=== PATIENT | female | born 1955 | race Caucasian/White ===

== ENCOUNTER 2017-12-05 10:06 | Emergency (ER) | payer OTHER ==
[2017-12-05 10:45] LABS: Absolute Lymphocytes (CBC) 1.5 K/uL (0.7-4.9); Absolute Neutrophil 8.6 K/uL (1.8-8.0); Basophils % 0.3 % (0-1.3); Eosinophils % 2.8 % (0-4.4); Hematocrit 41.3 % (36.0-45.0); MCH 31.7 pg (27.0-35.0); MCV 92.6 fL (80-100); MPV 7.6 fL (7.6-11.3); Monocytes % 8.8 % (3.3-12.3); RBC Red Blood Cell Count 4.46 M/uL (3.86-4.86)
[2017-12-05 10:47] LABS: Protime INR 0.97
[2017-12-05 10:57] LABS: ALT/SGPT 13 U/L (12-78); AST/SGOT 9 U/L (15-37); Albumin 3.8 g/dL (3.4-5.0); Alkaline Phosphatase 79 U/L (45-117); BUN Blood Urea Nitrogen 15 mg/dL (7-18); Bicarbonate 26 mmol/L (21-32); Bilirubin Direct 0.2 mg/dL (0-0.2); Bilirubin Total 0.6 mg/dL (0.2-1.0); Glucose Level 104 mg/dL (74-106); Magnesium 2.4 mg/dL (1.8-2.4); NT PRO-BNP 181 pg/mL (<125); Protein, Total 7.5 g/dL (6.4-8.2); Sodium Level 141 mmol/L (136-145); Troponin (Emerg Dept Use Only) < 0.02 ng/mL (0.0-0.045)
--- NOTE | 2017-12-05 10:57 | RAD REPORT ---
EXAM DESCRIPTION: RAD - Chest Single View - 12/05/2017 10:51 am CLINICAL HISTORY: CHEST PAIN Chest pain. COMPARISON: Chest Pa And Lat (2 Views) dated 01/09/2016 FINDINGS: Portable technique limits examination quality. The lungs are emphysematous but grossly clear. The heart is normal in size. No displaced fractures. IMPRESSION: COPD.
[2017-12-05] MEDS ORDERED: IBUPROFEN 200 MG TAB PO ONE (12:58)
--- NOTE | 2017-12-05 13:17 | RAD REPORT ---
EXAM DESCRIPTION: CT - Head Brain Wo Cont - 12/05/2017 1:08 pm CLINICAL HISTORY: Headache COMPARISON: None. TECHNIQUE: Axial 5 mm thick images of the head were obtained without IV contrast. All CT scans are performed using dose optimization technique as appropriate and may include automated exposure control or mA/KV adjustment according to patient size. FINDINGS: No intracranial hemorrhage, mass, edema or shift of mid-line structures. No acute infarcti on changes seen. No cortical edema or sulcal effacement. Mild atrophy and chronic ischemic changes ar e present. Physiologic and arterial calcifications are present. Ventricles are normal. Mastoid air cells and visualized portions of the paranasal sinuses are clear. No acute bony findings. IMPRESSION: Negative non-contrast CT head examination for acute finding Mild atrophy and chronic ischemic change.
--- NOTE | 2017-12-05 13:34 | ER ---
Nurse's Notes [facility] Name: Nikki Lopez Age: 62 yrs Sex: Female : 1955 Arrival Date: 12/05/2017 Time: 10:09 Bed 3 Private MD: Diagnosis: COPD, Bronchitis, Headache, Chest pain Presentation: 12/05 10:21 Presenting complaint: Patient states: chest pain that radiates up neck and into back ss that began yesterday with shortness of breath. Pt reports that pain is continuous, has gotten worse but also has episodic sharp pains. Also c/o cough, has history of COPD and smokes 1-2 ppd. Transition of care: patient was not received from another setting of care. Onset of symptoms was December 04, 2017. Risk Assessment: Do you want to hurt yourself or someone else? Patient reports no desire to harm self or others. Initial Sepsis Screen: Does the patient meet any 2 criteria? No. Patient's initial sepsis screen is negative. Does the patient have a suspected source of infection? Yes: Productive cough/pneumonia. Care prior to arrival: None. 10:21 Method Of Arrival: Ambulatory ss 10:21 Acuity: ANA 3 ss Historical: - Allergies: 10:30 No Known Allergies; ss - Home Meds: 10:30 simvastatin 10 mg Oral tab 1 tab once daily [Active]; aspirin 81 mg Oral TbEC 1 tab ss once daily [Active]; - PMHx: 10:30 High Cholesterol; COPD; ss - PSHx: 10:30 Cholecystectomy; Hysterectomy; foot sx; ss - Immunization history:: Adult Immunizations up to date. - Social history:: Smoking status: Patient uses tobacco products, 1.5 ppd. - Ebola Screening: : Patient denies exposure to infectious person Patient denies travel to an Ebola-affected area in the 21 days before illness onset. Screenin:30 Abuse screen: Denies threats or abuse. Denies injuries from another. Nutritional ss screening: No deficits noted. Tuberculosis screening: Never had TB. Fall Risk None identified. Assessment: 10:23 General: Appears uncomfortable, Behavior is calm, cooperative, Reports feeling ill for ss 1-2 days, Denies fever. Pain: Complains of pain in chest Pain radiates to neck and upper back Pain currently is 7 out of 10 on a pain scale. at worst was 8 out of 10 on a pain scale. Quality of pain is described as aching, with episodic sharp pains Pain began yesterday Is continuous. Neuro: Level of Consciousness is awake, alert, obeys commands, Oriented to person, place, time, situation. Cardiovascular: Heart tones S1 S2 present Capillary refill < 3 seconds is brisk in bilateral fingers Rhythm is regular. Cardiovascular: Pulses are palpable in right radial artery, right posterior tibial artery, left radial artery and left posterior tibial artery Edema is absent. Respiratory: Reports shortness of breath on exertion cough that is since yesterday, is productive/ hacking Breath sounds are diminished in left posterior lower lobe, right posterior middle lobe and right posterior lower lobe. GI: Patient currently denies abdominal pain, diarrhea, nausea, vomiting. : No signs and/or symptoms were reported regarding the genitourinary system. EENT: Nares are clear Oral mucosa is moist. Throat is clear. Derm: Skin is intact, is healthy with good turgor, Skin is dry, Skin is pink, warm \T\ dry. normal. Musculoskeletal: Circulation, motion, and sensation intact. Range of motion: intact in all extremities, Swelling absent. 12:54 Reassessment: Patient appears in no apparent distress at this time. Patient and/or ss family updated on plan of care and expected duration. Pain level reassessed. Pt c/o headache and CP 5/10, is aware that we are awaiting for repeat troponin results and head CT to be obtained. Call light remains within reach. Motrin given. 13:04 Reassessment: Pt to CT VIA wheelchair at this time. ss 13:51 Reassessment: Patient appears in no apparent distress at this time. Patient and/or ss family updated on plan of care and expected duration. Pain level reassessed. Patient is alert, oriented x 3, equal unlabored respirations, skin warm/dry/pink. Patient states feeling better. Patient states symptoms have improved. Vital Signs: 10:21 BP 126 / 77; Pulse 92; Resp 19; Temp 98.6(O); Pulse Ox 97% on R/A; Weight 77.11 kg; ss Height 5 ft. 9 in. (175.26 cm); Pain 7/10; 12:17 BP 145 / 74; Pulse 87; Resp 20; Pulse Ox 96% on R/A; Pain 5/10; ss 10:21 Body Mass Index 25.10 (77.11 kg, 175.26 cm) ss ED Course: 10:09 Patient arrived in ED. mr 10:19 Saqib Mosqueda MD is Attending Physician. kdr 10:21 Kika Oliveira, RN is Primary Nurse. ss 10:21 Arm band placed on right wrist. ss 10:23 Triage completed. ss 10:23 EKG done, by pathology lab technician. reviewed by Saqib Mosqueda MD. at1 10:30 Inserted saline lock: 20 gauge in left antecubital area, using aseptic technique. ss ,using aseptic technique. insertion by Tonio Dalton clinical dietetic technician Blood collected. Patient maintains SpO2 saturation greater than 95% on room air. 10:30 Patient has correct armband on for positive identification. Placed in gown. Bed in low ss position. Call light in reach. Side rails up X 1. satellite project site monitor on. Pulse ox on. NIBP on. Warm blanket given. 10:50 X-ray completed. Portable x-ray completed in exam room. Patient tolerated procedure ml well. 10:51 XRAY Chest (1 view) In Process Unspecified. EDMS 12:43 EKG done, by pathology lab technician. reviewed by Saqib Mosqueda MD. dt2 13:08 CT Head Brain wo Cont In Process Unspecified. EDMS 13:51 No provider procedures requiring assistance completed. IV discontinued, intact, ss bleeding controlled, No redness/swelling at site. Pressure dressing applied. Administered Medications: 12:51 Drug: Motrin 600 mg Route: PO; ss 13:53 Follow up: Response: No adverse reaction; Pain is decreased Outcome: 13:33 Discharge ordered by . kdr 13:51 Discharged to home ambulatory. ss 13:51 Condition: improved 13:51 Discharge instructions given to patient, Instructed on discharge instructions, follow up and referral plans. medication usage, Demonstrated understanding of instructions, follow-up care, medications, Prescriptions given X 3. 13:52 Patient left the ED. Signatures: Dispatcher [employer] EDMS Saqib Mosqueda MD MD kdr RiveraLeatha Mallika Ordoñez, RN RN Danyell Escamilla Kika Oliveira, TUCKER RN ss Seema Valenzuela, brazing machine operator EKG Tat1 Angela Fonseca dt2
--- NOTE | 2017-12-05 13:35 | EDPHYS ---
Physician Documentation [facility] Name: Nikki Lopez Age: 62 yrs Sex: Female : 1955 Arrival Date: 12/05/2017 Time: 10:09 Bed 3 Private MD: ED Physician Saqib Mosqueda HPI: 12/05 23:11 This 62 yrs old Female presents to ER via Ambulatory with complaints of Chest kdr Pain, Shortness Of Breath. 23:11 The patient or guardian reports chest pain that is located primarily in the anterior kdr chest wall, bilaterally. Onset: yesterday. The pain radiates to the left arm, Associated signs and symptoms: The patient has no apparent associated signs or symptoms. The chest pain is described as aching, dull, a heaviness. Duration: The patient or guardian reports a single episode, that is still ongoing, but improving. Modifying factors: The symptoms are alleviated by nothing. the symptoms are aggravated by cough, deep breath, exertion, movement, palpation of area. Severity of pain: At its worst the pain was mild in the emergency department the pain has improved. The patient has not experienced similar symptoms in the past. The patient has not recently seen a physician. Historical: - Allergies: 10:30 No Known Allergies; ss - Home Meds: 10:30 simvastatin 10 mg Oral tab 1 tab once daily [Active]; aspirin 81 mg Oral TbEC 1 tab ss once daily [Active]; - PMHx: 10:30 High Cholesterol; COPD; ss - PSHx: 10:30 Cholecystectomy; Hysterectomy; foot sx; ss - Immunization history:: Adult Immunizations up to date. - Social history:: Smoking status: Patient uses tobacco products, 1.5 ppd. - Ebola Screening: : Patient denies exposure to infectious person Patient denies travel to an Ebola-affected area in the 21 days before illness onset. ROS: 23:11 Constitutional: Negative for fever, chills, and weight loss, Eyes: Negative for injury, kdr pain, redness, and discharge, ENT: Negative for injury, pain, and discharge, Neck: Negative for injury, pain, and swelling, Abdomen/GI: Negative for abdominal pain, nausea, vomiting, diarrhea, and constipation, Back: Negative for injury and pain, : Negative for injury, bleeding, discharge, and swelling, MS/Extremity: Negative for injury and deformity, Skin: Negative for injury, rash, and discoloration, Neuro: Negative for headache, weakness, numbness, tingling, and seizure activity. Psych: Negative for depression, anxiety, suicide ideation, homicidal ideation, and hallucinations, Allergy/Immunology: Negative for hives, rash, and allergies, Endocrine: Negative for neck swelling, polydipsia, polyuria, polyphagia, and marked weight changes, Hematologic/Lymphatic: Negative for swollen nodes, abnormal bleeding, and unusual bruising. 23:11 Cardiovascular: Positive for chest pain, Negative for edema, orthopnea, palpitations, paroxysmal nocturnal dyspnea. 23:11 Respiratory: Positive for cough, dyspnea on exertion, shortness of breath, on exertion. Negative for hemoptysis, orthopnea, pleurisy. Exam: 23:11 Constitutional: This is a well developed, well nourished patient who is awake, alert, kdr and in no acute distress. Head/Face: Normocephalic, atraumatic. Eyes: Pupils equal round and reactive to light, extra-ocular motions intact. Lids and lashes normal. Conjunctiva and sclera are non-icteric and not injected. Cornea within normal limits. Periorbital areas with no swelling, redness, or edema. Neck: Trachea midline, no thyromegaly or masses palpated, and no cervical lymphadenopathy. Supple, full range of motion without nuchal rigidity, or vertebral point tenderness. No Meningismus. Chest/axilla: Normal chest wall appearance and motion. Nontender with no deformity. No lesions are appreciated. Cardiovascular: Regular rate and rhythm with a normal S1 and S2. No gallops, murmurs, or rubs. Normal PMI, no JVD. No pulse deficits. Respiratory: Lungs have equal breath sounds bilaterally, clear to auscultation and percussion. No rales, rhonchi or wheezes noted. No increased work of breathing, no retractions or nasal flaring. Abdomen/GI: Soft, non-tender, with normal bowel sounds. No distension or tympany. No guarding or rebound. No evidence of tenderness throughout. Back: No spinal tenderness. No costovertebral tenderness. Full range of motion. Skin: Warm, dry with normal turgor. Normal color with no rashes, no lesions, and no evidence of cellulitis. MS/ Extremity: Pulses equal, no cyanosis. Neurovascular intact. Full, normal range of motion. Neuro: Awake and alert, GCS 15, oriented to person, place, time, and situation. Cranial nerves II-XII grossly intact. Motor strength 5/5 in all extremities. Sensory grossly intact. Cerebellar exam normal. Normal gait. Psych: Awake, alert, with orientation to person, place and time. Behavior, mood, and affect are within normal limits. Vital Signs: 10:21 BP 126 / 77; Pulse 92; Resp 19; Temp 98.6(O); Pulse Ox 97% on R/A; Weight 77.11 kg; ss Height 5 ft. 9 in. (175.26 cm); Pain 7/10; 12:17 BP 145 / 74; Pulse 87; Resp 20; Pulse Ox 96% on R/A; Pain 5/10; ss 10:21 Body Mass Index 25.10 (77.11 kg, 175.26 cm) ss MDM: 13:33 Patient medically screened. kdr 23:11 Data reviewed: vital signs, nurses notes, lab test result(s), EKG, radiologic studies. kdr Counseling: I had a detailed discussion with the patient and/or guardian regarding: the historical points, exam findings, and any diagnostic results supporting the discharge/admit diagnosis, lab results, radiology results, the need for outpatient follow up. 12/05 10:20 Order name: Basic Metabolic Panel; Complete Time: 11:46 kdr 12/05 10:20 Order name: CBC with Diff; Complete Time: 11:46 kdr 12/05 10:20 Order name: LFT's; Complete Time: 11:46 kdr 12/05 10:20 Order name: Magnesium; Complete Time: 11:46 kdr 12/05 10:20 Order name: NT PRO-BNP; Complete Time: 11:46 kdr 12/05 10:20 Order name: PT-INR; Complete Time: 11:46 kdr 12/05 10:20 Order name: Troponin (emerg Dept Use Only); Complete Time: 11:46 kdr 12/05 10:20 Order name: XRAY Chest (1 view); Complete Time: 11:46 kdr 12/05 10:20 Order name: EKG; Complete Time: 10:21 kdr 12/05 11:49 Order name: Troponin (emerg Dept Use Only): draw 2 hours after initial draw kdr 12/05 11:49 Order name: Troponin (Emerg Dept Use Only); Complete Time: 13:24 EDDE 12/05 12:37 Order name: CT Head Brain wo Cont; Complete Time: 13:24 kdr 12/05 13:22 Order name: EKG Electrocardiogram EDDE 12/05 10:20 Order name: Cardiac monitoring; Complete Time: 10:27 kdr 12/05 10:20 Order name: EKG - Nurse/Tech; Complete Time: 10:27 kdr 12/05 10:20 Order name: IV Saline Lock; Complete Time: 10:27 kdr 12/05 10:20 Order name: Labs collected and sent; Complete Time: 10:28 kdr 12/05 10:20 Order name: O2 Per Protocol; Complete Time: 10:28 kdr 12/05 10:20 Order name: O2 Sat Monitoring; Complete Time: 10: kdr 12/05 11:50 Order name: EKG Strip: 2 hours after initial EKG; Complete Time: 12:48 kdr Administered Medications: 12:51 Drug: Motrin 600 mg Route: PO; 13:53 Follow up: Response: No adverse reaction; Pain is decreased ss Disposition: 12/05/17 13:33 Discharged to Home. Impression: COPD, Bronchitis, Headache, Chest pain. - Condition is Stable. - Discharge Instructions: Shortness of Breath, Tzyy-np-Luyt, Nonspecific Chest Pain, Lezb-pu-Tcbn, General Headache Without Cause, Gmaw-hw-Mesb, Chronic Obstructive Pulmonary Disease Exacerbation, Ktel-wa-Kovb. - Prescriptions for Tessalon Perles 100 mg Oral Capsule - take 1 capsule by ORAL route every 8 hours As needed; 15 capsule. Zithromax Z- Jean 250 mg Oral Tablet - take 1 tablet by ORAL route as directed for 5 days Day 1 - take two (2) tablets one time. Day 2, 3, 4 , 5 take one (1) tablet once daily.; 6 tablet. Medrol (Jean) 4 mg Oral Tablets, Dose Pack - take 1 tablet by ORAL route as directed - follow package instructions; 1 packet. - Medication Reconciliation Form, Thank You Letter, Antibiotic Education form. - Follow up: Private Physician; When: 2 - 3 days; Reason: If symptoms return, Further diagnostic work-up, Recheck today's complaints, Continuance of care, Re-evaluation by your physician. - Problem is an acute exacerbation. - Symptoms have improved. Signatures: Dispatcher [employer] EDMS Saqib Mosqueda MD MD kdr Kika Oliveira, TUCKER RN ss Corrections: (The following items were deleted from the chart) 13:52 13:33 12/05/2017 13:33 Discharged to Home. Impression: COPD, Bronchitis, Headache, ss Chest pain. Condition is Stable. Forms are Medication Reconciliation Form, Thank You Letter, Antibiotic Education, Prescription Opioid Use. Follow up: Private Physician; When: 2 - 3 days; Reason: If symptoms return, Further diagnostic work-up, Recheck today's complaints, Continuance of care, Re-evaluation by your physician. Problem is an acute exacerbation. Symptoms have improved. kdr
--- NOTE | 2017-12-05 14:26 | EKG ---
Test Date: 2017-12-05 Test Time: 12:35:42 Real Estate Development Manager: SHADI MEASUREMENT RESULTS: Intervals: Rate: 82 CA: 140 QRSD: 70 QT: 384 QTc: 448 [place]: P: 70 CA: 140 QRS: 43 T: 71 INTERPRETIVE STATEMENTS: Sinus rhythm with occasional premature ventricular complexes Otherwise normal ECG Compared to ECG 12/05/2017 10:17:36 Ventricular premature complex(es) now present Electronically Signed On 12-05-17 14:25:45 CDT by Jadon Conley
--- NOTE | 2017-12-05 14:27 | EKG ---
Test Date: 2017-12-05 Test Time: 10:17:36 Manager Of Quality: ALVARO MEASUREMENT RESULTS: Intervals: Rate: 97 [place]: 132 QRSD: 72 QT: 358 QTc: 454 [place]: P: 76 [place]: 132 QRS: 40 T: 79 INTERPRETIVE STATEMENTS: Normal sinus rhythm Normal ECG Compared to ECG 05/17/1998 09:44:00 No significant changes Electronically Signed On 12-05-17 14:26:15 CDT by Jadon Conley
== END 2017-12-05 13:52 | disposition home or self-care (01) ==
LOC: ER 10:06
DX: J44.9 Chronic obstructive pulmonary disease, unspecified (principal); R51 Headache; E78.00 Pure hypercholesterolemia, unspecified; Z72.0 Tobacco use; Z79.82 Long term (current) use of aspirin
CPT/HCPCS: 36415; 70450; 71045; 80048; 80076; 83735; 83880; 84484; 85025; 85610; 93005; 99285

== ENCOUNTER 2021-03-23 06:08 | Day surgery (SDC) | payer OTHER ==
[2021-03-22 15:13] LABS: Absolute Lymphocytes (CBC) 1.7 K/uL (0.7-4.9); Hematocrit 47.6 % (36.0-45.0); Lymphocytes % 12.8 % (15.3-44.8); MPV 7.1 fL (7.6-11.3)
--- NOTE | 2021-03-22 16:32 | RAD REPORT ---
EXAM DESCRIPTION: Kush Preston And Manoj (2 Views)03/22/2021 3:10 pm CLINICAL HISTORY: Preop for abscess removal COMPARISON: 2019 FINDINGS: Lungs are moderately hyperaerated. Previously described left upper lobe nodules not clearl y seen on this exam but can be missed with x-ray. The lungs appear clear of acute infiltrate. The heart is normal size
[2021-03-23] MEDS ORDERED: Ringers Lactate 1,000 ML IV ONE (06:22)
[2021-03-23] MEDS ORDERED: CEFAZOLIN/NS 1gm 1 GM/50 ML BAG ONE (06:22)
[2021-03-23] MEDS ORDERED: FENTANYL CITR 100 MCG/2 ML ONE (06:58)
[2021-03-23] MEDS ORDERED: propofoL 200 MG/20 ML VIAL IV ONE (06:58)
[2021-03-23] MEDS ORDERED: LIDOCAINE 2% MPF 5 ML VIAL ONE (06:58)
[2021-03-23] MEDS ORDERED: MIDAZOLAM HCL 2 MG/2 ML INJ ONE (06:58)
[2021-03-23] MEDS ORDERED: CEFAZOLIN SODIUM 1 GM/VIAL ONE (07:42)
[2021-03-23] MEDS ORDERED: ONDANSETRON 4 MG/2 ML VIAL ONE (07:48)
[2021-03-23] MEDS ORDERED: KETOROLAC 30 MG/ML INJ ONE (07:50)
--- NOTE | 2021-03-23 08:35 | OP ---
Date of Procedure: 03/23/2021 Surgeon: Kwame Connors MD Egg Caser: None. Preoperative Diagnosis: Abscess/cellulitis, left axilla. Postoperative Diagnosis: Abscess/cellulitis, left axilla, with an infected sebaceous cyst. Procedure Performed: Wide excision of left axilla infected sebaceous cyst, 8 x 4 cm, with layered cl osure. Estimated Blood Loss: Minimal. Specimen: Pus and cyst. Findings: As above. Anesthesia: General. Drains: A quarter-inch [place] drain. Disposition: The patient tolerated the procedure in stable condition and taken to Recovery in good g eneral condition. Procedure In Detail: The patient was brought to the OR and placed in supine position. General anest hesia begun. The patient was prepped and draped in the usual sterile fashion in the right lateral po sition. Then, Marcaine 0.5% was infiltrated locally. A #15 blade was used to make an 8 x 4 cm incis ion to excise what appeared to be an abscess at first, but once we made the incision, I could see the re was an infected sebaceous cyst with an abscess inside of the cyst. So the pus was evacuated, cult ures were done, and then the entire cyst was excised, the wall and everything down through the deep s ubcutaneous tissue and sent to Pathology. Wound was irrigated, bleeding controlled with cautery, fla ps created, and then the wound was loosely approximated. First, there was a quarter-inch [place] aubree in placed in the wound and secured with 3-0 nylon, and then 2-0 chromic was used to reapproximate the subcutaneous tissue, and then 3-0 nylon was used to loosely reapproximate the skin in interrupted piedra tures. Then, sterile dressing was applied. The patient was awakened and taken to Recovery in good g eneral condition. Discharge Note: The patient will go to Day Surgery and home when stable. Disposition: Home. Condition: Stable. Discharge Instructions: Resume home medications and diet. Activity as tolerated. No heavy lifting. Remove outer dressing in 2 days. Shower. Keep wound clean and dry, dry gauze to wound daily. Fol low up in my office in a week. Call for appointment. The patient has clindamycin at home, Tylenol N o.3 one tablet p.o. q.4 p.r.n. pain. /MODL Voice ID: [id number] Report ID: [id number]
[2021-03-23 08:42] VITALS: BP 146/70; TEMP 97.3; O2SAT 90
[2021-03-23] MEDS ORDERED: CODEINE 30MG/APAP 300MG TAB PO ONE (08:45)
[2021-03-23] MEDS ORDERED: CODEINE 30MG/APAP 300MG TAB ONE (08:53)
== END 2021-03-23 09:20 | disposition home or self-care (01) ==
LOC: OR 06:08
PROVIDERS: ATTEND Surgery
PROC: 0HBCXZZ Excision of Left Upper Arm Skin, External Approach (ICD-10-PCS; principal; 2021-03-23 07:00)
DX: L72.0 Epidermal cyst (principal); Z20.822 Contact with and (suspected) exposure to COVID-19
CPT/HCPCS: 93005; 87070; 85025; 80048; 36415; 87205; 88304; 87075; 87077; 87186; 71046; 11406; U0003; J2704; J2250; J3010; J0690 ×2; J7120; J2405

== ENCOUNTER 2023-12-10 06:30 | Day surgery (SDC) | payer OTHER ==
[2023-12-05 10:58] LABS: Absolute Eosinophils 0.3 K/uL (0-0.5); Absolute Lymphocytes (CBC) 1.4 K/uL (0.7-4.9); Absolute Monocytes 0.6 K/uL (0.1-1.3); Absolute Neutrophil 5.1 K/uL (1.8-8.0); Basophils % 0.4 % (0-1.3); Eosinophils % 3.9 % (0-4.4); Hematocrit 46.9 % (36.0-45.0); Hemoglobin 15.5 g/dL (12.0-15.0); Lymphocytes % 18.4 % (15.3-44.8); MCH 31.8 pg (27.0-35.0); MCV 96.2 fL (80-100); MPV 6.9 fL (7.6-11.3); Monocytes % 7.9 % (3.3-12.3); Neutrophils % 69.4 % (41.7-73.7); Platelets 308 thou/uL (152-406); RBC Red Blood Cell Count 4.87 M/uL (3.86-4.86); Red Cell Distribution Width 13.5 % (12.1-15.2)
[2023-12-05 11:01] LABS: PT Prothrombin Time 10.2 SECONDS (9.4-12.5); PTT, Activated Partial Thromb 30.3 SECONDS (24.3-36.9); Protime INR 0.91
[2023-12-05 11:07] LABS: Anion Gap 6.3 mEq/L (5.0-15.0); Potassium 4.3 mEq/L (3.5-5.1)
--- NOTE | 2023-12-05 11:32 | RAD REPORT ---
EXAMINATION: TWO VIEW CHEST XR CLINICAL INDICATION: pre op for labor relations specialist TECHNIQUE: 2 views of the chest was performed. COMPARISON: 03/22/2021 FINDINGS: The lungs are hyperexpanded suggesting COPD. The heart is upper limit of normal in size. No displaced fractures evident. IMPRESSION: COPD is suspected without acute finding identified. The USPSTF recommends annual screening for lung cancer with low-dose computed tomography (LDCT) in ad ults aged 50 to 80 years who have a 20 pack-year smoking history and currently smoke or have quit within the past 15 years. Screening should be discontinued once a person has not smoked for 15 years or develops a health problem that substantially limits life expectancy or the ability or willingness to have curative lung surgery.
--- NOTE | 2023-12-05 14:05 | EKG ---
Test Date: 2023-12-05 Test Time: 10:40:48 Cryptographic Center Specialist: JENNIFFER MEASUREMENT RESULTS: Intervals: Rate: 67 CA: 158 QRSD: 68 QT: 420 QTc: 443 [place]: P: 76 CA: 158 QRS: 46 T: 80 INTERPRETIVE STATEMENTS: Normal sinus rhythm Normal ECG Compared to ECG 03/22/2021 15:14:12 No significant changes Electronically Signed On 12-05-23 14:05:21 CDT by Jefferson Hollingsworth
[2023-12-10] MEDS ORDERED: FENTANYL CITR 100 MCG/2 ML ONE (07:14)
[2023-12-10] MEDS ORDERED: MIDAZOLAM HCL 2 MG/2 ML INJ ONE (07:14)
[2023-12-10] MEDS ORDERED: HEPA 1000U/500MLS 1,000 UNIT/500 ML BAG IV ONE (07:23)
[2023-12-10] MEDS ORDERED: NITROGLYCERIN/D5W 50 MG/250 ML BTL IV ONE (07:23)
[2023-12-10] MEDS ORDERED: CLOPIDOGREL 75 MG TABLET ONE (07:24)
[2023-12-10] MEDS ORDERED: HEPARIN 5000 UNIT/ML 1 ML VIAL ONE (07:24)
[2023-12-10] MEDS ORDERED: ATROPINE SULF 1 MG/10 ML SYR IV ONE (07:24)
[2023-12-10] MEDS ORDERED: HEPARIN 10,000 UNIT/10 ML VIAL IV ONE (07:24)
[2023-12-10] MEDS ORDERED: VERAPAMIL HCL 10 MG/4 ML VIAL IV ONE (07:24)
[2023-12-10] MEDS ORDERED: LIDOCAINE 1% 20 ML MDV ONE (07:24)
[2023-12-10] MEDS ORDERED: ASPIRIN 325 MG TAB ONE (07:25)
[2023-12-10] MEDS ORDERED: TICAGRELOR 90 MG TABLET PO ONE (07:25)
[2023-12-10] MEDS: NA CHLORIDE 0.9% 500 ML ONE (09:40)
[2023-12-10 12:41] VITALS: O2SAT 95
[2023-12-10 12:43] VITALS: TEMP 98.7
[2023-12-10 13:22] VITALS: BP 111/45
--- NOTE | 2023-12-11 13:20 | OP ---
Date of Procedure: 12/10/2023 Surgeon: Jefferson Hollingsworth Procedures Performed: 1.Left heart catheterization. 2.Selective coronary angiogram. 3.PCI of the LAD with Synergy 3.5 x 24 mm drug-eluting stent, overlapped with another Synergy 2.5 x 20 mm drug-eluting stent. 4.PCI of the diagonal with Synergy 3.0 x 16 mm drug-eluting stent. Complications: None. Estimated Blood Loss: Less than 50 cc. Access: Right radial, closed by TR band. Indications For Procedure: Unstable angina. Abnormal monitor showing nonsustained VT. Sedation Time: 40 minutes with 1 of Versed and 25 of fentanyl. Description Of Procedure: After risks, and benefits, and alternatives were explained to patient, pat ient agreed to proceed with the procedure and signed informed consent. The patient was brought back to the kiln labourer, prepped and draped in a sterile fashion. Time-out was performed. Sedation was admi nistered. Right radial access was obtained. Next, [place] 4.0 catheter was advanced over a J-wire to the LV cavity. LVEDP was obtained and pullback did not show any gradient. Same catheter was used fo r selective angiogram. That catheter was later exchanged for an EBU 3.0 mm guide to the left main. Heparin was administered. ACT was therapeutic. Runthrough wire was passed across the lesion and a s econd Runthrough wire was passed across the lesion into the diagonal, pre-dilated the mid LAD lesions with NC 2.5 mm balloon. Next, Synergy 2.5 x 20 mm drug-eluting stent was passed across the lesion. Repeat angiogram shows pinching of the ostial diagonal. So, another wire was passed across the diag onal and pre-dilated the lesions with 2.0, 2.5 mm NC balloons. Next, Synergy 3.0 x 16 mm drug-elutin g stent was placed across the lesion that was overlapped with the LAD Synergy stent and then recross done and kissing balloon inflation was done. After that, the proximal LAD was pre-dilated with an NC 3.0 mm balloon. Synergy 3.5 x 24 mm drug-eluting stent was placed across the proximal LAD, that was overlapped with the mid LAD stent. This postdilated with an NC 4.0 mm balloon. Final angiogram yaneth ws NARA-3 flow. Catheter was removed over a J-wire. Sheath was removed. TR band was applied. Hemo stasis was achieved and patient was moved back to recovery room in stable condition. Findings: 1.Significant proximal LAD disease, status post PCI with Synergy 4.0 x 24 mm drug-eluting stent. 2.Significant mid LAD/diagonal disease. PCI of the mid LAD was done with Synergy 2.5 x 24 mm drug-e luting stent and that overlapped in a culotte technique with a 3.0 x 20 mm drug-eluting stent into th e diagonal branch. Plan: 1.Aspirin 81 mg daily for life. Brilinta 90 mg p.o. b.i.d. for 12 months. 2.Continue aggressive medical treatment for CAD. CLARI/BAYRON Voice ID: [id number] Report ID: [id number]
== END 2023-12-10 13:40 | disposition home or self-care (01) ==
LOC: CCL 06:30
PROVIDERS: ADMIT Internal Medicine; ATTEND Internal Medicine Interventional Cardiology
DX: I25.110 Atherosclerotic heart disease of native coronary artery with unstable angina pectoris (principal); I70.213 Atherosclerosis of native arteries of extremities with intermittent claudication, bilateral legs; I44.1 Atrioventricular block, second degree; E78.2 Mixed hyperlipidemia; J44.9 Chronic obstructive pulmonary disease, unspecified; F17.210 Nicotine dependence, cigarettes, uncomplicated; Z79.899 Other long term (current) drug therapy; Z82.49 Family history of ischemic heart disease and other diseases of the circulatory system
CPT/HCPCS: 36415; 71046; 76937; 80048; 85025; 85347; 85610; 85730; 93005; 93458; 99152; 99153; C1725; C1877; C1893; C9600; C9601; J0461; J1644; J2003; J2250; J3010; J7040; Q9967

== ENCOUNTER 2024-09-24 12:29 | Inpatient (IN) | payer OTHER ==
--- OUTSIDE RECORDS SUMMARY | 2024-09-24 12:32 | XMS REPORT | Continuity of Care Document ---
Author Name Unknown Address [address] [place] [address] [address] [place] [address] [facility] Address [address] [place] [address] 1 [address] [place] [address] Care Team Providers Care Record Label Intern Name Role Phone Sunita LOUIS, Connor Howard Primary Care Physician JC Attending Clinician Unavailable JC Admitting Clinician Unavailable Payers Payer Name Policy Type Policy Number Effective Date Expirati on Date Source AETNA [id number] 2019 00:00:00 [place]IC[place]: [facility] [id number] 2018 00:00:00 Problems Condition Name Condition Details Condition Category Status Onset Date Resolution Date Last Treatment Date Treating Clinician Comments Source Ataxia (finding) Ataxia (finding) Active Problem 09/28/2022 [facility] Problem Active 2022-09-28 12:09:09 Memoria sushant Almendarez Cervical radiculopa thy (disorder) Cervical radiculopa thy (disorder) Active Problem 09/28/2022 [facility] Problem Active 2022-09-28 12:09:09 Memoria sushant Almendarez Confusiona l state (disorder) Confusiona l state (disorder) Active Problem 09/28/2022 [facility] Problem Active 2022-09-28 12:09:09 Memkaila Almendarez Cough (finding) Cough (finding) Active Problem 09/28/2022 [facility] Problem Active 2022-09-28 12:09:09 Memoria sushant Almendarez Dizziness (finding) Dizziness (finding) Active Problem 09/28/2022 [facility] Problem Active 2022-09-28 12:09:09 Balaji Almendarez Hyperlipid emia (disorder) Hyperlipid emia (disorder) Active Problem 09/28/2022 [facility] Problem Active 2022-09-28 12:09:09 Balaji Almendarez Memory impairment (finding) Memory impairment (finding) Active Problem 09/28/2022 [facility] Problem Active 2022-09-28 12:09:09 Balaji Almendarez Carpal tunnel syndrome (disorder) Carpal tunnel syndrome (disorder) Active Problem 09/28/2022 [facility] Problem Active 2022-09-28 12:09:09 Balaji Almendarez Tremor (finding) Tremor (finding) Active Problem 09/28/2022 [facility] Problem Active 2022-09-28 12:09:09 Balaji Almendarez 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) Active Problem 05/03/2022 [facility] Problem Active 2022-05-03 17:03:46 Balaji Almendarez 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 Ordering Clinician Indication Dosage Frequency Signature (SIG) Comments Components Source prednisone 10 mg tablet 06-07 00:00: 00 Yes mg Josue Mao Trelegy Ellipta 100 mcg-62.5 mcg-25 mcg powder for inhalation 06-07 00:00: 00 Yes mcg Josue Mao albuterol sulfate HFA 90 mcg/actuati on aerosol inhaler 06-07 00:00: 00 Yes 2mcg/ac tuation Josue Mao Trelegy Ellipta 100 mcg-62.5 mcg-25 mcg powder for inhalation 2- 00:00: 00 Yes mcg Josue Mao albuterol sulfate HFA 90 mcg/actuati on aerosol inhaler 2- 00:00: 00 Yes 1mcg/ac tuation Josue Mao ezetimibe 10 mg tablet 2-05 00:00: 00 Yes 1mg Josue Mao prasugrel HCl 10 mg tablet 1-31 00:00: 00 Yes mg Josue Mao prednisone 10 mg tablet - 00:00: 00 Yes mg Josue Mao aspirin 81 mg chewable tablet - 00:00: 00 Yes mg Josue Mao Trelegy Ellipta 100 mcg-62.5 mcg-25 mcg powder for inhalation - 00:00: 00 Yes mcg Josue Mao clopidogrel 75 mg tablet - 00:00: 00 Yes mg Josue Mao candesartan 8 mg tablet 2023-02 00:00: 00 Yes mg Josue Mao metoprolol succinate ER 25 mg tablet,exte nded release 24 hr 2023-02 2- 00:00: 00 Yes mg Josue Mao rosuvastati n 10 mg tablet 2023-02 00:00: 00 Yes mg Josue Mao varenicline tartrate 1 mg tablet 2023-02 1-09 00:00: 00 Yes mg Josue Mao Brilinta 90 mg tablet 2023-02 0-16 00:00: 00 Yes mg Josue Mao venlafaxine 37.5 mg oral capsule, extended release 04-15 16:33: 00 Yes = 1 cap, PO, Daily, # 90 unknown unit, 1 Refill(s), Pharmacy: [id number], 175.26, cm, 03/19/22 8:28:00 BENDER HAND, Height, 80, kg, 03/19/22 8:28:00 BENDER HAND, Weight Balaji Almendarez primidone 50 mg oral tablet - 22:33: 00 Yes 50 mg = 1 tab, PO, Bedtime, # 90 tab, 3 Refill(s), Pharmacy: [id number], 175.26, cm, 03/19/22 8:28:00 BENDER HAND, Height, 80, kg, 03/19/22 8:28:00 BENDER HAND, Weight Balaji canchola Erickson Effexor XR 37.5 mg oral capsule, extended release 09-18 18:37: 00 Yes 37.5 mg = 1 cap, PO, Daily, # 90 cap, 1 Refill(s), Pharmacy: [facility] #[id number], 173.99, cm, 08/07/21 11:56:00 CDT, Height, 81.506, kg, 08/07/21 11:56:00 CDT, Weight Balaji canchola Erickson Effexor XR 37.5 mg oral capsule, extended release 09-18 18:35: 00 No 37.5 mg = 1 cap, PO, Daily, # 30 cap, 3 Refill(s), Pharmacy: [facility] #[id number], 173.99, cm, 08/07/21 11:56:00 CDT, Height, 81.506, kg, 08/07/21 11:56:00 CDT, Weight Balaji canchola Erickson Effexor XR 37.5 mg oral capsule, extended release 08-07 17:08: 00 Yes 37.5 mg = 1 cap, PO, Daily, # 30 cap, 3 Refill(s), Pharmacy: [facility] #[id number], 173.99, cm, 08/07/21 11:56:00 CDT, Height, 81.506, kg, 08/07/21 11:56:00 CDT, Weight Marvkaila sushant Almendarez rosuvastati n 06-18 15:17: 00 Yes 0 Refill(s) Balaji Almendarez Trelegy Ellipta inhalation powder 06-18 15:17: 00 Yes = 1 puff, INHALATION , Daily, 0 Refill(s) Balaji Almendarez Ventolin HFA 06-18 15:17: 00 Yes 1 puff, INHALATION , PRN, 0 Refill(s) Balaji Almendarez rosuvastati n 06-18 15:17: 00 Yes 0 Refill(s) Balaji Almendarez Vital Signs Vital Name Observation Time Observation Value Comments S ource BP Systolic 2024-05-24 10:28:00 Step hen Rossy Mao BP Diastolic 2024-05-24 10:28:00 Adrian phen F [place] Weight Measured 2024-05-24 10:28:00 Josue F [place] Height Measured 2024-05-24 10:28:00 Josue F [place] Body Temperature 2024-05-24 10:28:00 Josue F [place] Heart Rate 2024-05-24 10:28:00 Odalis en F Mayco Respiratory Rate 2024-05-24 10:28:00 Josue F [place] Respiratory Rate 2024-03-31 10:59:00 Josue F [place] BP Systolic 2024-03-31 10:59:00 128 mm[Hg] Step hen F [place] BP Diastolic 2024-03-31 10:59:00 71 mm[Hg] Adrian phen F [place] Weight Measured 2024-03-31 10:59:00 166.60 pounds Josue F [place] Height Measured 2024-03-31 10:59:00 69.00 inches Josue F [place] Body Temperature 2024-03-31 10:59:00 97.40 degrees Josue F [place] Heart Rate 2024-03-31 10:59:00 75.00 /min Odalis en F [place] Height 2022-07-31 15:52:00 5 [ft_i] [facility] Weight 2022-07-31 15:52:00 [facility] BMI Calculated 2022-07-31 [facility] 2022-07-31 15:52:00 [facility] Diastolic (mm Hg) 2022-07-31 15:52:00 [facility] Heart Rate 2022-07-31 15:52:00 [facility] Systolic (mm Hg) 2022-04-30 15:18:00 [facility] Diastolic (mm Hg) 2022-04-30 15:18:00 [facility] Heart Rate 2022-04-30 15:18:00 [facility] Height 2022-04-30 15:18:00 5 [ft_i] [facility] Weight 2022-04-30 15:18:00 [facility] BMI Calculated 2022-04-30 15:18:00 [facility] Systolic (mm Hg) 2022-03-19 14:22:00 [facility] Diastolic (mm Hg) 2022-03-19 14:22:00 [facility] Heart Rate 2022-03-19 14:22:00 [facility] Height 2022-03-19 14:22:00 5 [ft_i] [facility] Weight 2022-03-19 14:22:00 [facility] BMI Calculated 2022-03-19 14:22:00 [facility] Systolic (mm Hg) 2022-02-05 16:36:00 [facility] Diastolic (mm Hg) 2022-02-05 16:36:00 [facility] Heart Rate 2022-02-05 16:36:00 [facility] Height 2022-02-05 16:36:00 5 [ft_i] [facility] Weight 2022-02-05 16:36:00 [facility] BMI Calculated 2022-02-05 16:36:00 [facility] Systolic (mm Hg) 2021-08-07 16:48:00 [facility] Diastolic (mm Hg) 2021-08-07 16:48:00 [facility] Heart Rate 2021-08-07 16:48:00 [facility] Respitory Rate 2021-08-07 16:48:00 [facility] Height 2021-08-07 16:48:00 173.99 cm [facility] Weight 2021-08-07 16:48:00 [facility] BMI Calculated 2021-08-07 16:48:00 [facility] Systolic (mm Hg) 2021-07-06 18:12:00 [facility] Diastolic (mm Hg) 2021-07-06 18:12:00 [facility] Heart Rate 2021-07-06 18:12:00 [facility] Height 2021-07-06 18:12:00 176.53 cm [facility] Weight 2021-07-06 18:12:00 [facility] BMI Calculated 2021-07-06 18:12:00 [facility] Weight 2018-07-17 16:14:00 [facility] Height 2018-07-17 16:14:00 175.26 cm [facility] BMI Calculated 2018-07-17 16:14:00 [facility] Respitory Rate 2018-07-17 16:14:00 [facility] Heart Rate 2018-07-17 16:14:00 [facility] Systolic (mm Hg) 2018-07-17 16:14:00 [facility] Diastolic (mm Hg) 2018-07-17 16:14:00 [facility] BMI Calculated 2018-06-18 15:12:00 [facility] Weight 2018-06-18 15:12:00 [facility] Height 2018-06-18 15:12:00 175.26 cm [facility] Respitory Rate 2018-06-18 15:12:00 [facility] Heart Rate 2018-06-18 15:12:00 [facility] Systolic (mm Hg) 2018-06-18 15:12:00 [facility] Diastolic (mm Hg) 2018-06-18 15:12:00 [facility] Encounters Start Date/Time End Date/Time Encounter Type Admission Type Attending [facility] Facility Care Department Encounter ID Source 2024-08-05 14:29:16 2024-08-05 14:29:16 Outpatient SFA SFA [id number] Josue Mao 2024-08-05 00:00:00 2024-08-05 00:00:00 Outpatient Visit SFA [id number] Josue Mao 2024-06-07 00:00:00 2024-06-07 00:00:00 Outpatient Visit SFA [id number] Josue Mao 2024-05-24 10:24:40 2024-05-24 10:24:40 Outpatient SFA SFA [id number] Josue Mao 2024-05-24 00:00:00 2024-05-24 00:00:00 Outpatient Visit SFA SFA [id number] Josue Mao 2024-03-31 10:45:01 2024-03-31 10:45:01 Outpatient SFA SFA [id number] Josue Mao 2024-03-31 00:00:00 2024-03-31 00:00:00 Outpatient Visit SFA SFA [id number] Josue Mao 2022-09-25 15:15:00 2022-09-26 04:59:59 Outpatient [facility] [id number] Marvkaila canchola Erickson 2022-07-31 16:00:00 2022-08-01 04:59:59 Outpatient [facility] [id number] Marvkaila canchola Erickson 2022-04-30 15:30:00 2022-05-01 05:59:59 Outpatient [facility] [id number] Marvkaila canchola Erickson 2022-04-24 18:29:00 2022-04-25 05:59:00 Outpt Diag Services [facility] [place] [id number] Marvkaila canchola Erickson 2022-03-19 14:15:00 2022-03-20 05:59:59 Outpatient [facility] [id number] Marvkaila canchola Erickson 2022-02-05 16:30:00 2022-02-06 05:59:59 Outpatient [facility] [id number] Marvkaila canchola Erickson 2021-09-18 18:30:00 2021-09-19 04:59:59 Outpatient nullFlavo r [facility] [id number] Balaji Almendarez 2021-08-07 16:45:00 2021-08-08 04:59:59 Outpatient nullFlavo r [facility] [id number] Balaji Almendarez 2021-08-02 15:00:00 2021-08-03 04:59:59 Outpatient nullFlavo r [facility] [id number] Balaji Almendarez 2021-07-06 18:15:00 2021-07-07 04:59:59 Outpatient nullFlavo r [facility] [id number] Balaji Almendarez 2021-06-14 15:15:00 2021-06-14 15:15:00 Ambulatory Pre-Reg nullFlavo r [facility] [id number] Balaji Almendarez 2018-08-18 13:45:00 2018-08-18 13:45:00 Ambulatory Pre-Reg nullFlavo r [facility] [id number] Balaji Almendarez 2018-07-21 20:00:00 2018-07-21 20:00:00 Ambulatory Pre-Reg nullFlavo r [facility] [id number] Balaji Almendarez 2018-07-17 16:15:00 2018-07-18 04:59:59 Outpatient nullFlavo r [facility] [id number] Balaji Almendarez 2018-06-18 15:15:00 2018-06-19 04:59:59 Outpatient nullFlavo r [facility] [id number] Marvkaila Montgomeryann Results Test Description Test Time Test Comments Results Result Co mments Source Tigre Almendarez Notes Date/Time Note Provider Source Josue Russo [facility]2025-04-14 00:00:00 [facility]2025-03-31 00:00:00 Josue Janee [facility]2025-02-05 00:00:00 [facility]2023-03-01 13:05:00* PROCEDURE INFORMATION: Exam: MR Cervical Spine Without and With Contrast Exam date and time: 04/24/2022 1:07 PM Age: 67 years old Clinical indication: Other specified congenital malformations of circulatory system; Additional info: /q28.8 other specified congenital malformations of circulatory system m54.12 radiculopathy, cervical region TECHNIQUE: Imaging protocol: Magnetic resonance imaging of the cervical spine without and with contrast. Contrast material: CLARISCAN; Contrast volume: 15 ml; Contrast route: INTRAVENOUS (IV); COMPARISON: No relevant prior studies available. FINDINGS: Bones/joints: There is straightening of the normal cervical lordosis without fracture or subluxation. There is anterior spondylosis from C4-C5 through C6-C7. Spinal cord: There is no myleomalacia or cord edema. There is no enhancement the cord. There is no enhancing extramedullary/intradural mass. There is no tonsillar ectopia. The C1/C2 articulation is intact. There is normal flow from both vertebral arteries. C2-C3: There is degenerative change of the left facet joint. There is no spinal stenosis. C3-C4: There is degenerative change of the left facet joint and hypertrophic change of uncovertebral joint with minimal foraminal stenosis and no central canal stenosis. C4-C5: The disc space is minimally desiccated. There is hypertrophic change to left uncovertebral joint without central or foraminal stenosis. There is minimal anterior spondylosis. C5-C6: The disc space is desiccated and there is a 2-3 mm left lateral bridging osteophyte, hypertrophic change of uncovertebral joint with attenuation of the distal lateral recess with minimal spinal stenosis and no compromise of the cord, there is a quite capacious spinal canal. There is minimal left foraminal stenosis and anterior spondylosis. C6-C7: The disc space is desiccated and there is a 2 mm bridging osteophyte and hypertrophic change to left uncovertebral joint with minimal central canal stenosis and minimal to moderate left foraminal stenosis. There is no compromise of the cord, there is a quite capacious spinal canal. C7-T1: No significant disc bulge or herniation. No severe spinal canal stenosis. No significant neural foraminal narrowing. Soft tissues: The prevertbral soft tissues are normal. Vasculature: Expected flow voids in the vertebral arteries. IMPRESSION: There is straightening of the normal cervical lordosis and multilevel discogenic/facet joint disease without significant central canal stenosis. The cervical and upper thoracic cord is normal. Long Wu MD On 04/25/2022 13:36:37; [id number] MICHAEL Thompson
--- NOTE | 2024-09-24 13:16 | ER ---
Nurse's Notes [facility] [place] Name: Nikki Lopez Age: 69 yrs Sex: Female : 1955 Arrival Date: 09/24/2024 Time: 12:29 Bed 3 Private MD: Diagnosis: Dyspnea;COPD/ Chronic obstructive pulmonary disease with (acute) exacerbation;Hypoxemia;Tobacco abuse counseling;Tobacco use Presentation: 09/24 12:34 Chief complaint: Patient states: SOB x 1-2 weeks ago, pt states "I think I had a sinus aa5 infection or something but the trouble breathing just got worse". 12:34 Coronavirus screen: shortness of breath. Ebola Screen: Patient denies travel to an aa5 Ebola-affected area in the 21 days before illness onset. Initial Sepsis Screen: Does the patient meet any 2 criteria? RR > 20 per min. HR > 90 bpm. Does the patient have a suspected source of infection? No. Patient's initial sepsis screen is negative. Risk Assessment: Do you want to hurt yourself or someone else? Patient reports no desire to harm self or others. Onset of symptoms was 2024. 12:34 Acuity: ANA 2 aa5 12:34 Method Of Arrival: Wheelchair aa5 Triage Assessment: 12:48 General: Appears distressed, uncomfortable, Behavior is cooperative, appropriate for os age, anxious. Pain: Denies pain. Neuro: No deficits noted. Cardiovascular: Capillary refill < 3 seconds. Respiratory: Reports shortness of breath at rest on exertion labored breathing Respiratory effort is labored, with nasal flaring, pursed lip, Respiratory pattern is symmetrical, tachypnea Onset: The symptoms/episode began/occurred yesterday, the patient has moderate shortness of breath. Historical: - PMHx: 12:42 COPD; High Cholesterol; Hypertensive disorder; aa5 - PSHx: 12:42 heart stents (Unknown); aa5 - Immunization history:: Adult Immunizations unknown. - Infectious Disease History:: Denies. - Social history:: Smoking status: unknown. Screenin:42 [facility] ED Fall Risk Assessment (Adult) History of falling in the last 3 months, kc6 including since admission No falls in past 3 months (0 pts) Confusion or Disorientation No (0 pts) Intoxicated or Sedated No (0 pts) Impaired Gait No (0 pts) Mobility Assist Device Used No (0 pt) Altered Elimination No (0 pt) Score/Fall Risk Level 0 - 2 = Low Risk Oriented to surroundings. Abuse screen: Denies threats or abuse. Denies injuries from another. Nutritional screening: No deficits noted. Tuberculosis screening: No symptoms or risk factors identified. Assessment: 12:00 Reassessment: Patient appears in no apparent distress at this time. No changes from os previously documented assessment. Patient and/or family updated on plan of care and expected duration. Pain level reassessed. Patient is alert, oriented x 3, equal unlabored respirations, skin warm/dry/pink. 13:00 Reassessment: Patient appears in no apparent distress at this time. No changes from os previously documented assessment. Patient and/or family updated on plan of care and expected duration. Pain level reassessed. Patient is alert, oriented x 3, equal unlabored respirations, skin warm/dry/pink. 14:00 Reassessment: Patient appears in no apparent distress at this time. No changes from os previously documented assessment. Patient and/or family updated on plan of care and expected duration. Pain level reassessed. Patient is alert, oriented x 3, equal unlabored respirations, skin warm/dry/pink. 15:00 Reassessment: Patient appears in no apparent distress at this time. No changes from os previously documented assessment. Patient and/or family updated on plan of care and expected duration. Pain level reassessed. Patient is alert, oriented x 3, equal unlabored respirations, skin warm/dry/pink. 16:00 Reassessment: Patient appears in no apparent distress at this time. No changes from os previously documented assessment. Patient and/or family updated on plan of care and expected duration. Pain level reassessed. Patient is alert, oriented x 3, equal unlabored respirations, skin warm/dry/pink. 17:52 Cardiovascular: No deficits noted. Rhythm is sinus tachycardia. os 17:52 Respiratory: Airway is patent Respiratory effort is labored, os Vital Signs: 12:34 BP 125 / 70; Pulse 95; Resp 26 S; Temp 98.4(O); Pulse Ox 88% on 2 lpm NC; aa5 12:37 Pulse Ox 92% on 4 lpm NC; aa5 14:21 BP 130 / 82; Pulse 89; Resp 19; Temp 98; Pulse Ox 100% on NC; os 16:00 BP 115 / 87; Pulse 95; Resp 24; Pulse Ox 95% on NC; FiO2 2 %; ar8 ED Course: 12:30 Patient arrived in ED. mr 12:34 Arm band placed on Patient placed in an exam room, on a stretcher. aa5 12:36 Cecilio Tamez MD is Attending Physician. gaurav 12:41 Aylin Marie, TUCKER is Primary Nurse. os 12:42 Patient has correct armband on for positive identification. Bed in low position. Call kc6 light in reach. Side rails up X2. environmental marketer on. Pulse ox on. NIBP on. Door closed. Noise minimized. Lights dimmed. Warm blanket given. Pillow given. Verbal reassurance given. 12:44 Triage completed. aa5 12:50 No provider procedures requiring assistance completed. Inserted saline lock: 18 gauge os in right antecubital area, using aseptic technique. 13:14 Peter Hayes MD is Hospitalizing Provider. [facility] 13:30 XRAY Chest (1 view) In Process Unspecified. EDMS 13:32 Lipid Profile Sent. os 13:32 COVID-19 Ag + Flu A+B Ag Sent. os 13:32 CBC Smear Scan Sent. os 13:33 Blood Culture Adult (2) Sent. os 13:33 Basic Metabolic Panel Sent. os 13:33 CBC with Diff Sent. os 13:33 LFT's Sent. os 13:33 Magnesium Sent. os 13:33 NT PRO-BNP Sent. os 13:33 PT-INR Sent. os 13:33 Troponin HS Sent. os 14:09 Blood Culture Adult (2) Sent. os 17:53 Patient admitted, IV remains in place. kc6 Administered Medications: 14:08 Drug: levofloxacin IVPB 500 mg 100 ml IVPB once over 60 mins Volume: 100 ml; Route: os IVPB; Infused Over: 60 mins; Site: right antecubital; 14:08 Drug: Famotidine IVP 20 mg IVP once; dilute with 10 mL 0.9% NaCl; give over 2 minutes os Route: IVP; Site: right antecubital; 14:09 Drug: MethylPrednisoLONE IVP 125 mg IVP once Route: IVP; Site: right antecubital; os 14:09 Drug: predniSONE PO 40 mg PO once Route: PO; os 14:09 Drug: NS 0.9% IV 500 ml 500 ml IV at 1 bolus once; to be given as a bolus over 30 os minutes Volume: 500 ml; Route: IV; Rate: 1 bolus; Site: right antecubital; 14:09 Drug: NS 0.9% IV 500 ml 500 ml IV at 100 ml/hr once Volume: 500 ml; Route: IV; Rate: os 100 ml/hr; Site: right antecubital; 14:17 Drug: Levalbuterol Inhalation 3.75 mg Inhalation once Route: Inhalation; os 14:17 Drug: Ipratropium Inhalation Aerosol 0.5 mg Inhalation once Route: Inhalation; os 14:22 Follow up: Response: No adverse reaction; Other os 14:17 Drug: Levalbuterol Inhalation 2.5 mg Inhalation once Route: Inhalation; os Medication: 17:53 VIS not applicable for this client. kc6 Outcome: 13:15 Decision to Hospitalize by Provider. gaurav 17:53 Admitted to Med/surg accompanied by tech, via wheelchair, room 210, with oxygen, with kc6 chart, 17:53 Condition: stable 17:53 Instructed on the need for admit, 17:54 Patient left the ED. kc6 Signatures: Dispatcher [employer] Cecilio Slater MD MD cha Rivera, Mary, Reg Reg mr Terrie Black, RN RN vel5 Chelly Louis RN RN kc6 Aylin Marie RN RN os Rodriguez, Andrea RN RN [id number]
--- NOTE | 2024-09-24 13:16 | EDPHYS ---
Physician Documentation [facility] Name: Nikki Lopez Age: 69 yrs Sex: Female : 1955 Arrival Date: 09/24/2024 Time: 12:29 Bed 3 Private MD: ED Physician Cecilio Tamez HPI: 09/24 13:02 This 69 yrs old Female presents to ER via Wheelchair with complaints of gaurav Breathing Difficulty. 13:02 The patient has shortness of breath at rest, with light activity. Onset: The gaurav symptoms/episode began/occurred 5 day(s) ago. Duration: The symptoms are chronic, and have existed for years, are continuous, and are steadily getting worse. The patient's shortness of breath is aggravated by coughing, exertion, light activity, is alleviated by pursed lip breathing, rest, application of supplemental oxygen. Associated signs and symptoms: Pertinent positives: non-productive cough. Severity of symptoms: At their worst the symptoms were moderate in the emergency department the symptoms are unchanged. The patient has experienced similar episodes in the past, multiple times. Historical: - PMHx: 12:42 COPD; High Cholesterol; Hypertensive disorder; aa5 - PSHx: 12:42 heart stents (Unknown); aa5 - Immunization history:: Adult Immunizations unknown. - Infectious Disease History:: Denies. - Social history:: Smoking status: unknown. ROS: 13:07 Constitutional: Negative for fever, chills, and weight loss, Eyes: Negative for injury, gaurav pain, redness, and discharge, ENT: Negative for injury, pain, and discharge, Neck: Negative for injury, pain, and swelling, Cardiovascular: Negative for chest pain, palpitations, and edema, Abdomen/GI: Negative for abdominal pain, nausea, vomiting, diarrhea, and constipation, Back: Negative for injury and pain, : Negative for injury, bleeding, discharge, and swelling, MS/Extremity: Negative for injury and deformity, Skin: Negative for injury, rash, and discoloration, Neuro: Negative for headache, weakness, numbness, tingling, and seizure, Psych: Negative for depression, anxiety, suicide ideation, homicidal ideation, and hallucinations, Allergy/Immunology: Negative for hives, rash, and allergies, Endocrine: Negative for neck swelling, polydipsia, polyuria, polyphagia, and marked weight changes, Hematologic/Lymphatic: Negative for swollen nodes, abnormal bleeding, and unusual bruising, 13:07 Respiratory: Positive for cough, dyspnea on exertion, shortness of breath, wheezing, inspiratory, expiratory, 13:07 MS/extremity: Negative for acute changes, Exam: 13:07 Constitutional: This is a well developed, well nourished patient who is awake, alert, gaurav and in no acute distress. Head/Face: Normocephalic, atraumatic. Eyes: Pupils equal round and reactive to light, extra-ocular motions intact. Lids and lashes normal. Conjunctiva and sclera are non-icteric and not injected. Cornea within normal limits. Periorbital areas with no swelling, redness, or edema. ENT: Nares patent. No nasal discharge, no septal abnormalities noted. Tympanic membranes are normal and external auditory canals are clear. Oropharynx with no redness, swelling, or masses, exudates, or evidence of obstruction, uvula midline. Mucous membranes moist. Neck: Trachea midline, no thyromegaly or masses palpated, and no cervical lymphadenopathy. Supple, full range of motion without nuchal rigidity, or vertebral point tenderness. No Meningismus. Chest/axilla: Normal chest wall appearance and motion. Nontender with no deformity. No lesions are appreciated. Cardiovascular: Regular rate and rhythm with a normal S1 and S2. No gallops, murmurs, or rubs. Normal PMI, no JVD. No pulse deficits. Abdomen/GI: Soft, non-tender, with normal bowel sounds. No distension or tympany. No guarding or rebound. No evidence of tenderness throughout. Back: No spinal tenderness. No costovertebral tenderness. Full range of motion. Skin: Warm, dry with normal turgor. Normal color with no rashes, no lesions, and no evidence of cellulitis. MS/ Extremity: Pulses equal, no cyanosis. Neurovascular intact. Full, normal range of motion., bilateral aka Neuro: Awake and alert, GCS 15, oriented to person, place, time, and situation. Cranial nerves II-XII grossly intact. Motor strength 5/5 in all extremities. Sensory grossly intact. Cerebellar exam normal. Normal gait. Psych: Awake, alert, with orientation to person, place and time. Behavior, mood, and affect are within normal limits. 13:07 ECG was reviewed by the Attending Physician. 13:07 Respiratory: mild respiratory distress is noted, moderate respiratory distress is noted, Respirations: labored breathing, that is mild, asymmetrical chest movement, is not seen, accessory muscle usage, is absent, Breath sounds: bronchial sounds, that are mild, decreased breath sounds, that are moderate, rhonchi, that are mild, stridor, is not appreciated, Respiratory rate: 26 13:07 Musculoskeletal/extremity: DVT Exam: No signs of deep vein thrombosis. no pain, no swelling, no tenderness, negative Homans' sign noted on exam, no appreciated bluish discoloration, no erythema, no increased warmth, 13:50 ECG was reviewed by the Attending Physician. [facility] Vital Signs: 12:34 BP 125 / 70; Pulse 95; Resp 26 S; Temp 98.4(O); Pulse Ox 88% on 2 lpm NC; aa5 12:37 Pulse Ox 92% on 4 lpm NC; aa5 14:21 BP 130 / 82; Pulse 89; Resp 19; Temp 98; Pulse Ox 100% on NC; os 16:00 BP 115 / 87; Pulse 95; Resp 24; Pulse Ox 95% on NC; FiO2 2 %; ar8 MDM: 12:36 Medical Screening Exam initiated gaurav 13:10 Differential diagnosis: asthma, Bronchitis CHF exacerbation, Chronic Obstructive gaurav Pulmonary Disease acute asthma, reactive airway, CHF, anaphylaxis, URI, Myocardial Infarction pneumonia, pulmonary edema, reactive airway disease, Sepsis Unstable Angina. Antibiotic administration: Levaquin given. Differential Diagnosis: Obstructed Airway Bronchitis Influenza Upper Respiratory Infection Asthma Exacerbation Viral Syndrome. Immunization status: Pneumococcal vaccine: within last 5 years. Influenza vaccine: within last 5 years. Data reviewed: vital signs, nurses notes, lab test result(s), EKG, radiologic studies, plain films. Consideration of Admission/Observation Patient was admitted/placed on observation. Escalation of care including admission/observation considered. I considered the following discharge prescriptions or medication management in the emergency department Medications were administered in the Emergency Department. See MAR. Independent interpretation of the following test(s) in the Emergency Department EKG: See my EKG interpretation above. Test considered but Not performed: Ultrasound no 2 . Historians other than the Patient: Spouse/Significant Other: well informed. Care significantly affected by the following chronic conditions: Hypertension, Chronic Obstructive Pulmonary Disease. 09/24 13:01 Order name: Basic Metabolic Panel; Complete Time: 14:03 gaurav 09/24 13:01 Order name: CBC with Diff gaurav 09/24 13:01 Order name: LFT's; Complete Time: 14:03 gaurav 09/24 13:01 Order name: Magnesium; Complete Time: 14:03 gaurav 09/24 13:01 Order name: NT PRO-BNP; Complete Time: 14:03 gaurav 09/24 13:01 Order name: PT-INR; Complete Time: 14:03 gaurav 09/24 13:01 Order name: Troponin HS; Complete Time: 14:03 gaurav 09/24 13:02 Order name: Blood Culture Adult (2) [facility] 09/24 13:02 Order name: Lactate w/ 2H reflex if indic.; Complete Time: 14:03 gaurav 09/24 13:02 Order name: Lipid Profile; Complete Time: 14:03 [facility] 09/24 13:03 Order name: COVID-19 Ag + Flu A+B Ag bc6 08 13:31 Order name: CBC Smear Scan EDMS 09/24 14:28 Order name: Basic Metabolic Panel EDMS 09/24 14:28 Order name: Basic Metabolic Panel EDMS 09/24 14:28 Order name: Basic Metabolic Panel EDMS 09/24 14:28 Order name: Basic Metabolic Panel EDMS 09/24 14:28 Order name: CBC with Automated Diff EDMS 09/24 14:28 Order name: CBC with Automated Diff EDMS 09/24 14:28 Order name: CBC with Automated Diff EDMS 09/24 14:28 Order name: CBC with Automated Diff EDMS 09/24 14:28 Order name: Magnesium EDMS 09/24 14:28 Order name: Magnesium EDMS 09/24 14:28 Order name: Magnesium EDMS 09/24 14:28 Order name: Magnesium EDMS 09/24 14:28 Order name: Phosphorus EDMS 09/24 14:28 Order name: Phosphorus EDMS 09/24 14:28 Order name: Phosphorus EDMS 09/24 14:28 Order name: Phosphorus EDMS 09/24 16:23 Order name: ABG Arterial Blood Gas EDMS 09/24 13:01 Order name: XRAY Chest (1 view); Complete Time: 14:03 gaurav 09/24 13:01 Order name: EKG; Complete Time: 13:04 gaurav 09/24 13:01 Order name: Cardiac monitoring; Complete Time: 13:32 [facility] 09/24 13:01 Order name: EKG - Nurse/Tech; Complete Time: 14:07 [facility] 09/24 13:01 Order name: IV Saline Lock; Complete Time: 13:33 [facility] 09/24 13:01 Order name: Labs collected and sent; Complete Time: 13:33 [facility] 09/24 13:01 Order name: O2 Per Protocol; Complete Time: 13:33 [facility] 09/24 13:01 Order name: O2 Sat Monitoring; Complete Time: 13:33 [facility] EC:50 Rate is 91 beats/min. Rhythm is regular. QRS [place] is Normal. NV interval is normal. QRS gaurav interval is normal. QT interval is normal. No Q waves. T waves are Normal. No ST changes noted. Clinical impression: Normal ECG and No evidence of ischemia. Interpreted by me. Reviewed by me. Administered Medications: 14:08 Drug: levofloxacin IVPB 500 mg 100 ml IVPB once over 60 mins Volume: 100 ml; Route: os IVPB; Infused Over: 60 mins; Site: right antecubital; 14:08 Drug: Famotidine IVP 20 mg IVP once; dilute with 10 mL 0.9% NaCl; give over 2 minutes os Route: IVP; Site: right antecubital; 14:09 Drug: MethylPrednisoLONE IVP 125 mg IVP once Route: IVP; Site: right antecubital; os 14:09 Drug: predniSONE PO 40 mg PO once Route: PO; os 14:09 Drug: NS 0.9% IV 500 ml 500 ml IV at 1 bolus once; to be given as a bolus over 30 os minutes Volume: 500 ml; Route: IV; Rate: 1 bolus; Site: right antecubital; 14:09 Drug: NS 0.9% IV 500 ml 500 ml IV at 100 ml/hr once Volume: 500 ml; Route: IV; Rate: os 100 ml/hr; Site: right antecubital; 14:17 Drug: Levalbuterol Inhalation 3.75 mg Inhalation once Route: Inhalation; os 14:17 Drug: Ipratropium Inhalation Aerosol 0.5 mg Inhalation once Route: Inhalation; os 14:22 Follow up: Response: No adverse reaction; Other os 14:17 Drug: Levalbuterol Inhalation 2.5 mg Inhalation once Route: Inhalation; os Disposition Summary: 09/24/24 13:15 Hospitalization Ordered Notes: Hospitalization Status: Inpatient Admission gaurav Provider: Peter Hayes cha Location: Telemetry/MedSurg (Inpatient) gaurav Condition: Fair gaurav Problem: new gaurav Symptoms: have improved gaurav Bed/Room Type: Standard gaurav Room Assignment: 210(09/24/24 14:31) bc6 Diagnosis - Dyspnea gaurav - COPD/ Chronic obstructive pulmonary disease with (acute) exacerbation gaurav - Hypoxemia gaurav - Tobacco abuse counseling gaurav - Tobacco use gaurav Forms: - Medication Reconciliation Form gaurav - SBAR form gaurav - Leadership Thank You Letter gaurav Signatures: Dispatcher [employer] EDMS Cecilio Tamez MD MD cha Calderon, Audri, RN RN aa5 Alex Dhaliwal FNP-C ADVERTISING VICE PRESIDENT-Cla1 Chelly Louis RN RN [id number] Krista Taylor bc6 Aylin Marie RN RN os Corrections: (The following items were deleted from the chart) 13:04 13:04 COVID-19 Ag + Flu A+B [id number] ordered. EDME EDMS 14:31 13:15 gaurav bc6
[2024-09-24 13:27] LABS: Hematocrit 44.4 % (36.0-45.0); Hemoglobin 14.6 g/dL (12.0-15.0); MCH 31.1 pg (27.0-35.0); MCHC 32.9 g/dL (32.0-36.0); MCV 94.4 fL (80-100); MPV 7.1 fL (7.6-11.3); RBC Red Blood Cell Count 4.70 M/uL (3.86-4.86); White Blood Count 13.80 thou/uL (4.3-10.9)
[2024-09-24 13:28] LABS: Absolute Lymphocytes (CBC) 1.0 K/uL (0.7-4.9); Nucleated RBC Absolute Count 0.0 (0-0); Nucleated Red Blood Cells % 0.0 % (0-0)
[2024-09-24 13:34] LABS: PT Prothrombin Time 11.1 SECONDS (10-13.0); Protime INR 0.98
[2024-09-24 13:46] LABS: HDL Cholesterol 57.0 mg/dL (40-60); LDL Cholesterol, Calculated 36.0 mg/dL (<130); LDL Cholesterol,Calc NonReport 36.0
[2024-09-24 13:48] LABS: ALT/SGPT < 14 U/L (13-56); AST/SGOT < 10 U/L (15-37); Albumin 3.1 g/dL (3.4-5.0); Albumin/Globulin Ratio 0.9 (1.1-1.8); Alkaline Phosphatase 88 U/L (45-117); Anion Gap 3.6 mEq/L (5.0-15.0); BUN Blood Urea Nitrogen 13 mg/dL (7-18); Bilirubin Indirect, Calculated 0.1 mg/dL (0.2-0.8); Globulin 3.6 g/dL (2.3-3.5); Glucose Level 146 mg/dL (74-106); Magnesium 2.0 mg/dL (1.6-2.4); NT PRO-BNP 313 pg/mL (<125); Potassium 3.6 mEq/L (3.5-5.1); Troponin High Sensitivity 7.3 pg/mL (<58.9)
[2024-09-24] MEDS ORDERED: IPRATROPIUM BROM 0.5MG/2.5ML ONE (13:50)
[2024-09-24] MEDS ORDERED: METHYLPREDNISOLONE 125 MG INJ ONE (13:50)
[2024-09-24] MEDS ORDERED: Levofloxacin500mg IV 500 MG/100 ML BAG IV ONE (13:51)
[2024-09-24] MEDS ORDERED: predniSONE 20 MG TAB ONE (13:51)
[2024-09-24] MEDS ORDERED: FAMOTIDINE 20 MG/2 ML VIAL IV ONE (13:51)
[2024-09-24] MEDS ORDERED: LEVALBUTEROL 1.25 MG/3 ML NEB ONE (13:51)
[2024-09-24] MEDS ORDERED: NA CHLORIDE 0.9% 1,000 ML ONE (13:52)
--- NOTE | 2024-09-24 13:53 | RAD REPORT ---
EXAMINATION: ONE VIEW CHEST XR CLINICAL INDICATION: COPD TECHNIQUE: Frontal chest projection is submitted. Examination is limited by patient positioning and t echnique. COMPARISON: 07/13/2024 FINDINGS: Prominent emphysema is present. Subtle opacity in the right base could be early infiltrate or atelect asis. The heart is upper limit of normal in size. No displaced fractures identified. Atherosclerosis.
[2024-09-24] MEDS ORDERED: ONDANSETRON 4 MG/2 ML VIAL IV PRN (14:22)
[2024-09-24 14:47] LABS: Influenza A Ag Negative; Influenza B Ag Negative; SARS-CoV-2 Antigen Rapid Res Negative (Negative)
[2024-09-24 14:56] LABS: Blood Morphology Comment NOT SEEN (NOT SEEN); White Blood Cell Scan OK (OK)
[2024-09-24] MEDS: Levofloxacin 750mg IV 750 MG/150 ML BAG IV SCH (15:00)
[2024-09-24] MEDS: NA CHLORIDE 0.9% 1,000 ML IV SCH (15:00)
--- NOTE | 2024-09-24 15:06 | P.HP ---
Certification for Inpatient Patient admitted to: Observation With expected LOS: <2 Midnights Practitioner: I am a practitioner with admitting privileges, knowledge of patient current condition, hospital course, and medical plan of care. Services: Services provided to patient in accordance with Admission requirements found in Title 42 Section 412.3 of the Code of Federal Regulations Patient History Date of Service: 09/24/24 Reason for admission: Worsening Shortness of Breath History of Present Illness: Patient is a 69 years old female with a past medical history significant for COPD, hypertension, hyperlipidemia, and CAD s/p coronary stent placement who presents to the emergency department via wheelchair with a complaint of worsening shortness of breath. Patient seen and examined at bedside, alert and oriented x 3. Patient report recent family vacation where her and grandchildren got sick and she believe the virus was passed down to her when she start to experience the symptoms including non- productive cough, and shortness of breath. While in the ER workup done including chest which shows; Prominent emphysema is present. Subtle opacity in the right base could be early infiltrate or atelectasis. WBC elevated at 13.80 blood glucose 146. Pending respiratory panel. On assessment, patient endorsed feeling better following ED management. Patient was given high-dose of Solu-Medrol 125 mg x 1, Duoneb treatment and was started on IV antibiotics. Patient admitted for further evaluation and management. Otherwise denies chest pain, palpitation and fever. Allergies No Known Allergies Allergy (Verified 12/05/23 10:22) Home Medications: Albuterol Inhaler [Ventolin Inhaler*] 2 puff IH Q6H PRN 03/22/21 Aspirin [Aspirin EC 81 MG] 81 mg PO DAILY 03/22/21 Calcium Carbonate [Calcium] 1,200 mg PO DAILY 03/22/21 Cholecalciferol (Vitamin D3) [Vitamin D3] 1,000 unit PO DAILY 03/22/21 Cider Vinegar [Apple Cider Vinegar] 1,500 mg PO DAILY 03/22/21 Ezetimibe 10 mg PO DAILY 03/22/21 Ezetimibe/Rosuvastatin Calcium [Rosuvastatin-Ezetimibe 10-10Mg] 1 each PO DAILY 03/22/21 Fluticasone/Umeclidin/Vilanter [Trelegy Ellipta 100-62.5-25] 1 each IH DAILY 03/22/21 Folic Acid/Vit B Complex and C [Folbee Plus Tablet] 5 mg PO DAILY 03/22/21 Calcium Carbonate [Calcium] 1,200 mg PO ONCE 07/14/24 Cholecalciferol (Vitamin D3) [Vitamin D3] 50 mcg PO ONCE 07/14/24 Fluticasone/Umeclidin/Vilanter [Trelegy Ellipta 100-62.5-25] 2 puff DAILY 07/14/24 Metoprolol Succinate 25 mg PO ONCE 07/14/24 Prasugrel HCl [Effient] 10 mg PO ONCE 07/14/24 Quercetin 1,000 mg PO ONCE 07/14/24 Amox/Clavulanate [Augmentin 875-125 Tab] 875 mg PO BID 5 Days #10 tab 07/16/24 Benzonatate [Tessalon Perle] 100 mg PO TID #30 cap 07/16/24 predniSONE [Deltasone*] 10 mg PO BID 5 Days #10 tab 07/16/24 - Past Medical/Surgical History Diabetic: No -: COPD -: CAD -: Hypertension -: Hyperlipidemia Psychosocial/ Personal History: Lives at home with family - Social History Alcohol use: No CD- Drugs: No Caffeine use: Yes Review of Systems 10-point ROS is otherwise unremarkable (Patient) Respiratory: Cough, SOB with Excertion (Nonproductive cough) Physical Examination - Physical Exam General: Mild distress HEENT: Normocephalic, PERRLA, Mucous membr. moist/pink Neck: 2+ carotid pulse no bruit Respiratory: Diminished, Expiratory wheezes Cardiovascular: No edema, Normal pulses, Regular rate/rhythm Capillary refill: <2 Seconds Gastrointestinal: Normal bowel sounds Musculoskeletal: No clubbing, No swelling, No contractures Neurological: Normal speech, Normal affect Lymphatics: No axilla or inguinal lymphadenopathy - Studies Laboratory Data (last 24 hrs) 09/24/24 09/24/24 09/24/24 13:15 13:15 13:15 WBC 13.80 H Hgb 14.6 Hct 44.4 Plt Count 304 PT 11.1 INR 0.98 Sodium Potassium BUN Creatinine Glucose Magnesium Total Bilirubin AST ALT Alkaline Phosphatase Triglycerides 65 Cholesterol 106 HDL Cholesterol 57 Cholesterol/HDL Ratio 1.86 09/24/24 13:15 WBC Hgb Hct Plt Count PT INR Sodium 141 Potassium 3.6 BUN 13 Creatinine 0.77 Glucose 146 H Magnesium 2.0 Total Bilirubin 0.3 AST < 10 L ALT < 14 Alkaline Phosphatase 88 Triglycerides Cholesterol HDL Cholesterol Cholesterol/HDL Ratio Assessment and Plan - Plan #Acute on chronic hypoxic respiratory failure likely secondary to COPD exacerbation with underlying emphysema #Possible early pneumonia #Leukocytosis --Pending respiratory panel --Chest x-ray shows infiltrate early on set -- Continue to monitor patient respiratory status for worsening hypoxia or signs of CO2 retention -- Continue supplemental oxygen to maintain SpO2 greater than 90% -- ED started patient on Solu-Medrol 125 mg x 1 dose, continue patient on 40 mg every 8 hours -- Continue IV antibiotics for Levaquin -- Continuous pulse oximetry monitoring -- Patient started on DuoNeb every 6 hours -- Consider consulting firewall administrator if respiratory status worsen -- Encourage incentive spirometer for chest physiotherapy if productive cough develop -- Monitor electrolytes and replace as needed -- Follow-up chest x-ray in 24 to 48 hours Hypertension Hyperlipidemia History of CAD with stent Home medications continued DVT PPX: Lovenox Code status: Full code Discharge Plan: Home Plan to discharge in: 48 Hours Plan to discharge in: 48 Hours - Advance Directives Does patient have a Living Will: No Does patient have a Durable POA for Healthcare: No - Code Status/Comfort Care Code Status Assessed: Yes
[2024-09-24] MEDS ORDERED: BENZONATATE 100 MG CAP PO PRN (15:16)
[2024-09-24] MEDS ORDERED: PRASUGREL HCL 5 MG PO SCH (15:45)
[2024-09-24 16:21] LABS: Arterial Blood Carboxyhemoglob 5.5 % (0.0-1.5); Blood Gas Inspired Oxygen 32.0 %; Blood Gas Oxyhemoglobin 87.0 % (94.0-97.0); Blood O2 Saturation 90.4 % (92.0-98.5)
[2024-09-24] MEDS ORDERED: METHYLPREDNISOLONE 40 MG INJ IV SCH (17:00)
[2024-09-24] MEDS: ALBUTEROL 2.5 MG/3 ML NEB SOL NEB SCH (19:52)
[2024-09-24] MEDS: IPRATROPIUM BROM 0.5MG/2.5ML NEB SCH (19:52)
[2024-09-24] MEDS: METHYLPREDNISOLONE 125 MG INJ IV SCH (20:20)
[2024-09-24 20:21] VITALS: BMI 23.1
[2024-09-25 07:04] LABS: Absolute Lymphocytes (CBC) 0.4 K/uL (0.7-4.9); Hematocrit 40.9 % (36.0-45.0); Hemoglobin 13.2 g/dL (12.0-15.0); MCH 30.5 pg (27.0-35.0); MCHC 32.2 g/dL (32.0-36.0); MCV 94.4 fL (80-100); MPV 7.4 fL (7.6-11.3); Nucleated RBC Absolute Count 0.0 (0-0); Nucleated Red Blood Cells % 0.0 % (0-0); RBC Red Blood Cell Count 4.33 M/uL (3.86-4.86); White Blood Count 11.30 thou/uL (4.3-10.9)
[2024-09-25 07:27] LABS: Anion Gap 6.9 mEq/L (5.0-15.0); BUN Blood Urea Nitrogen 17.0 mg/dL (7-18); Glucose Level 176.0 mg/dL (74-106); Magnesium 2.4 mg/dL (1.6-2.4); Potassium 3.9 mEq/L (3.5-5.1)
[2024-09-25] MEDS ORDERED: CANDESARTAN CILEXETIL 8 MG PO SCH (09:00)
[2024-09-25] MEDS ORDERED: [UNRECOGNIZED DRUG - OTHER] PO SCH (09:00)
[2024-09-25] MEDS: VITAMIN D 1000 UNIT TAB PO SCH (09:00)
[2024-09-25] MEDS: Fluticasone/Umeclidin/Vilanter [Trelegy Ellipta 100-62.5-25] Blst.W.Dev *PT OWN MED IH SCH (09:00)
[2024-09-25] MEDS: QUERCETIN 500 MG PO SCH (09:00)
[2024-09-25] MEDS ORDERED: HOME MED 1 EA UNK (Cholecalciferol (Vitamin D3) [Vitamin D3] 1,000 UNIT Capsule) PO SCH (09:00)
[2024-09-25] MEDS ORDERED: EZETIMIBE PO SCH (09:00)
[2024-09-25] MEDS ORDERED: ROSUVASTATIN CALCIUM PO SCH (09:00)
[2024-09-25] MEDS: PRASUGREL (EFFIENT) 10 MG TAB PO SCH (09:00)
[2024-09-25] MEDS: METOPROLOL XL 25 MG TAB PO SCH (09:30)
[2024-09-25] MEDS: EZETIMIBE 10 MG TAB PO SCH (09:31)
[2024-09-25] MEDS: VALSARTAN 80 MG TAB PO SCH (09:32)
[2024-09-25] MEDS: ENOXAPARIN 40 MG/0.4 ML SQ SCH (09:33)
[2024-09-25] MEDS: ASPIRIN EC 81 MG TAB PO SCH (09:33)
[2024-09-25] MEDS: FAMOTIDINE 20 MG/2 ML VIAL IV SCH (09:33)
[2024-09-25] MEDS: ROSUVASTATIN 10 MG TAB PO SCH (09:33)
[2024-09-25] MEDS: FOLBIC 1 TAB PO SCH (09:43)
--- NOTE | 2024-09-25 10:05 | P.PN ---
Subjective Date of Service: 09/25/24 Chief Complaint: Worsening Shortness of Breath Subjective: Improving (Patient is still dyspneic but can speak more comfortably today. She is getting jittery, hands are shaking.) Physical Examination - Vital Signs Temperature: 97.9 F Blood Pressure: 130/63 Pulse: 78 Respirations: 26 Pulse Ox (%): 93 - Physical Exam General: Mild distress HEENT: Atraumatic, Normocephalic Respiratory: Diminished, Expiratory wheezes Cardiovascular: No edema, Normal pulses, Regular rate/rhythm, Normal S1 S2 Neurological: Normal speech - Studies Laboratory Data (last 24 hrs) 09/24/24 09/24/24 09/24/24 13:15 13:15 13:15 WBC 13.80 H Hgb 14.6 Hct 44.4 Plt Count 304 PT 11.1 INR 0.98 Sodium Potassium BUN Creatinine Glucose Magnesium Total Bilirubin AST ALT Alkaline Phosphatase Triglycerides 65 Cholesterol 106 HDL Cholesterol 57 Cholesterol/HDL Ratio 1.86 09/24/24 13:15 WBC Hgb Hct Plt Count PT INR Sodium 141 Potassium 3.6 BUN 13 Creatinine 0.77 Glucose 146 H Magnesium 2.0 Total Bilirubin 0.3 AST < 10 L ALT < 14 Alkaline Phosphatase 88 Triglycerides Cholesterol HDL Cholesterol Cholesterol/HDL Ratio Assessment And Plan - Plan Assessment Patient is a 69-year-old female with a known history of COPD. She is known to Dr. Albarran from pulmonary medicine. She presented on 09/24 with acute shortness of breath and cough. She is being treated for COPD exacerbation complicated by respiratory failure. Patient is responding to standard COPD regimen. Acute hypoxemic respiratory failure COPD exacerbation Coronary disease status post PCI November 2023 Hypertension Hyperlipidemia Essential tremor Plan: Patient's lung auscultation reveals diminished air entry and expiratory wheezing. She is still coughing as well She will benefit from another day of IV steroid, bronchodilators and antibiotics Her steroids will be changed from 60 mg IV every 6 hours to 40 mg every 8 hours to minimize side effects Wean off oxygen as tolerated Antitussive orders: Tessalon Perles and Mucinex DVT and GI prophylaxis Pulmonary medicine consulted for continuity of care Continue prasugrel and aspirin due to history of PCI Patient will be discharged in 1 to 2 days
[2024-09-25] MEDS: LORazepam 2 MG/ML VIAL IV ONE (11:28)
[2024-09-25] MEDS: GUAIFENESIN 600 MG SA TAB PO SCH (11:29)
[2024-09-25] MEDS: BENZONATATE 100 MG CAP PO SCH (11:29)
[2024-09-25] MEDS: METHYLPREDNISOLONE 40 MG INJ IV SCH (16:06)
[2024-09-26 06:23] LABS: Absolute Lymphocytes (CBC) 0.4 K/uL (0.7-4.9); Hematocrit 37.0 % (36.0-45.0); Hemoglobin 12.6 g/dL (12.0-15.0); MCH 31.7 pg (27.0-35.0); MCHC 34.0 g/dL (32.0-36.0); MCV 93.3 fL (80-100); MPV 7.3 fL (7.6-11.3); Nucleated RBC Absolute Count 0.0 (0-0); Nucleated Red Blood Cells % 0.1 % (0-0); RBC Red Blood Cell Count 3.96 M/uL (3.86-4.86); White Blood Count 12.80 thou/uL (4.3-10.9)
[2024-09-26 06:56] LABS: Anion Gap 6.3 mEq/L (5.0-15.0); BUN Blood Urea Nitrogen 21.0 mg/dL (7-18); Glucose Level 153.0 mg/dL (74-106); Magnesium 2.3 mg/dL (1.6-2.4); Potassium 4.3 mEq/L (3.5-5.1)
--- NOTE | 2024-09-26 09:17 | P.PN ---
Subjective Date of Service: 09/26/24 Chief Complaint: Worsening Shortness of Breath Subjective: Improving (Patient is feeling better. She is still on supplemental oxygen, still experiencing cough) Physical Examination - Vital Signs Temperature: 97.6 F Blood Pressure: 141/69 Pulse: 84 Respirations: 23 Pulse Ox (%): 97 - Physical Exam General: Alert, In no apparent distress, Cooperative HEENT: Atraumatic, Normocephalic Respiratory: Expiratory wheezes Cardiovascular: No edema, Normal pulses, Regular rate/rhythm, Normal S1 S2 Neurological: Normal speech Assessment And Plan - Plan Assessment Patient is a 69-year-old female with a known history of COPD. She is known to Dr. Albarran from pulmonary medicine. She presented on 09/24 with acute shortness of breath and cough. She is being treated for COPD exacerbation complicated by respiratory failure. Patient is responding to standard COPD regimen. Acute hypoxemic respiratory failure COPD exacerbation Coronary disease status post PCI November 2023 Hypertension Hyperlipidemia Essential tremor Plan: Better air entry during lung auscultation Patient still has a mild cough and is still on supplemental oxygen Follow CT angio of the chest She needs another day of IV steroids, bronchodilators antibiotics Home O2 evaluation tomorrow She can probably be discharged tomorrow Antitussive orders: Tessalon Perles and Mucinex DVT and GI prophylaxis Pulmonary medicine consulted for continuity of care Continue prasugrel and aspirin due to history of PCI Patient will be discharged in 1 to 2 days
--- NOTE | 2024-09-26 09:19 | RAD REPORT ---
EXAM: CT Chest For Pe Angio TECHNIQUE: CT angiogram of the chest was performed following intravenous contrast administration, inc luding sagittal and coronal as well as maximum intensity projection reformats. One or more of the following dose reduction techniques were used: Automated exposure control, adjustment of the mA and k V according to patient size, and iterative reconstruction. Unless otherwise specified, incidental findings do not require dedicated imaging follow-up. INDICATION: [facility] r/o PE Y COMPARISON: 07/20/2024. FINDINGS: LINES/TUBES: None. PULMONARY ARTERIES: Main pulmonary arteries are normal in caliber. No filling defects within the pul monary arteries to suggest pulmonary embolus. LUNGS AND AIRWAYS: Advanced centrilobular emphysematous changes. Peripheral chronic interstitial thic kening. Scattered small nodular opacities, for example a 6 mm triangular peribronchial vascular nodule in the right lower lobe on axial image 119. Confluent peripheral right upper lobe nodularity c ollectively measuring up to 9 mm on axial image 52, new since the prior exam, with an adjacent stable more posterior 5 mm nodule . PLEURA: No effusion or pneumothorax. HEART AND MEDIASTINUM: The visualized thyroid gland is normal. No mediastinal, hilar, or axillary lym phadenopathy. Heart is unremarkable. No pericardial effusion. SOFT TISSUES AND BONES: No acute osseous abnormality. No significant soft tissue finding. UPPER ABDOMEN: Stable bilateral adrenal nodules largest measuring 2.6 cm on the left and 1.5 cm on th e right. IMPRESSION: No evidence of acute central pulmonary emboli. Advanced changes of COPD. Multifocal pulmonary nodules, including confluent small nodules in the carolin pheral right upper lobe, findings may suggest an infectious or inflammatory process.
[2024-09-26 10:31] LABS: Anisocytosis 2+; Blood Morphology Comment NOTED (NOT SEEN); Differential Total Cells Count 100; Macrocytosis 1+; Poikilocytosis 1+; Segmented Neutrophils 89 % (40-80)
--- NOTE | 2024-09-26 10:33 | P.CNS ---
Date of Consult: 09/26/24 Reason for Consult: COPD exacerbation Chief Complaint: Worsening Shortness of Breath History of Present Illness: Patient is 69 years of age with a history of COPD compliant with her inhalers she uses trilogy at home with albuterol inhaler also has oxygen became worse of the past 3 days started having cough congestion worsening shortness of breath came on rather suddenly he currently feels weak otherwise improving very apprehensive about having another exacerbation Allergies No Known Allergies Allergy (Verified 09/24/24 19:38) Home Medications: Aspirin [Aspirin EC 81 MG] 81 mg PO DAILY 03/22/21 Cholecalciferol (Vitamin D3) [Vitamin D3] 2,000 unit PO DAILY 03/22/21 Ezetimibe 10 mg PO DAILY 03/22/21 Ezetimibe/Rosuvastatin Calcium [Rosuvastatin-Ezetimibe 10-10Mg] 1 each PO DAILY 03/22/21 Folic Acid/Vit B Complex and C [Folbee Plus Tablet] 5 mg PO DAILY 03/22/21 Fluticasone/Umeclidin/Vilanter [Trelegy Ellipta 100-62.5-25] 2 puff IH DAILY 07/14/24 Metoprolol Succinate 25 mg PO DAILY 07/14/24 Prasugrel HCl [Effient] 10 mg PO DAILY 07/14/24 Quercetin 1,000 mg PO DAILY 07/14/24 Candesartan Cilexetil 8 mg PO DAILY 09/25/24 predniSONE [Deltasone*] 10 mg PO SEECOM 09/25/24 - Past Medical/Surgical History Diabetic: No -: COPD -: CAD -: Hypertension -: Hyperlipidemia Psychosocial/ Personal History: Lives at home with family - Social History Smoking Status: Unknown if ever smoked Alcohol use: No CD- Drugs: No Caffeine use: Yes Place of Residence: Home Review of Systems 10-point ROS is otherwise unremarkable General: Weakness Respiratory: Shortness of Breath Physical Examination Temp Pulse Resp BP Pulse Ox 97.6 F 84 23 H 141/69 H 97 09/26/24 09:17 09/26/24 09:17 09/26/24 09:17 09/26/24 09:17 09/26/24 09:17 General: Alert, Oriented x3 Respiratory: Clear to auscultation bilaterally, Diminished Cardiovascular: No edema, Regular rate/rhythm - Problems (1) Chronic obstructive pulmonary disease with (acute) exacerbation Current Visit: No Status: Acute Plan: Patient is 69 years of age with a history of advanced severe COPD on PFTs and CT changes admitted with an exacerbation changed to p.o. prednisone p.o. levofloxacin will need home nebulizer plus nebulized medication otherwise patient is hemodynamically stable oxygenation vital signs satisfactory labs chemistries reviewed white count is mildly elevated plan to discharge tomorrow on prednisone 20 twice daily for 5 days and levofloxacin 750 daily for 5 days follow-up with me next week For home nebulizer
[2024-09-26] MEDS: POTASS/SODIUM PHOSPHATE 1 PKT POWD.PACK PO SCH (20:00)
[2024-09-26] MEDS: predniSONE 20 MG TAB PO SCH (20:21)
[2024-09-27 06:08] LABS: Absolute Lymphocytes (CBC) 0.6 K/uL (0.7-4.9); Hematocrit 37.1 % (36.0-45.0); Hemoglobin 12.9 g/dL (12.0-15.0); MCH 32.0 pg (27.0-35.0); MCHC 34.8 g/dL (32.0-36.0); MCV 92.1 fL (80-100); MPV 6.8 fL (7.6-11.3); Nucleated RBC Absolute Count 0.0 (0-0); Nucleated Red Blood Cells % 0.0 % (0-0); RBC Red Blood Cell Count 4.03 M/uL (3.86-4.86); White Blood Count 10.30 thou/uL (4.3-10.9)
[2024-09-27 06:24] LABS: Anion Gap 3.4 mEq/L (5.0-15.0); BUN Blood Urea Nitrogen 23.0 mg/dL (7-18); Glucose Level 133.0 mg/dL (74-106); Magnesium 2.5 mg/dL (1.6-2.4); Potassium 4.4 mEq/L (3.5-5.1)
--- NOTE | 2024-09-27 08:58 | P.DS ---
Admission Date: 09/26/24 Discharge Date: 09/27/24 Disposition: ROUTINE DISCHARGE Discharge Condition: GOOD Reason for Admission: Worsening Shortness of Breath Consultations: Pulmonology - Dr. Dorsey Brief History of Present Illness: 69yo F, PMH: COPD, hypertension, hyperlipidemia, and CAD s/p coronary stent placement Patient who presents to the emergency department via wheelchair with a complaint of worsening shortness of breath. Patient seen and examined at bedside, alert and oriented x 3. Patient report recent family vacation where her and grandchildren got sick and she believe the virus was passed down to her when she start to experience the symptoms including non- productive cough, and shortness of breath. While in the ER workup done including chest which shows; Prominent emphysema is present. Subtle opacity in the right base could be early infiltrate or atelectasis. WBC elevated at 13.80 blood glucose 146. Pending respiratory panel. On assessment, patient endorsed feeling better following ED management. Patient was given high-dose of Solu-Medrol 125 mg x 1, Duoneb treatment and was started on IV antibiotics. Patient admitted for further evaluation and management. Otherwise denies chest pain, palpitation and fever. Hospital Course: Problem List: Acute on chronic COPD exacerbation (on home O2) Acute hypoxic respiratory failure secondary to above CAD s/p PCI (11/2023) Hypertension Hyperlipidemia Essential tremor Physician discharge instructions: Patient presented with worsening shortness of breath, wheeze secondary to acute on chronic COPD exacerbation. CTA chest was negative for PE but did show advanced COPD changes and also noted Multifocal pulmonary nodules, including confluent small nodules in the peripheral right upper lobe, concerning for infectious/inflammatory process. Dr. Dorsey, saw repairer was consulted. Patient received IV steroids in addition to empiric antibiotics and nebulizer treatments and had improvement of her symptoms. IV steroids and IV levaquin were deescalated to oral Prednisone/Levaquin and patient continued to improve. Will send prescription for 5 days of prednisone on discharge in addition to 5 days of oral levaquin as a precaution to cover infection. Patient was feeling better, breathing more comfortably, afebrile without leukocytosis for > 24 hours, and was deemed stable for discharge. Follow up with Dr. Dorsey in 1 week for further management. She also reports having oxygen setup at home already from a prior hospitalization. Medications: Prednisone 20mg twice daily for 5 days Levaquin 750 mg daily for 5 days Follow up: PCP 3-[address] Dorsey in 1 week Please call to schedule/ confirm appointments Physical Exam: GEN: Alert, oriented, NAD CV: Regular rate and rhythm, no edema Pulm: Nonlabored respirations on 3L NC clear bilaterally ABD: soft, nontender, nondistended Neuro: Normal speech, normal affect Vital Signs/Physical Exam: Temp Pulse Resp BP Pulse Ox 97.3 F 70 20 139/67 93 09/27/24 08:00 09/27/24 08:00 09/27/24 08:00 09/27/24 08:00 09/27/24 08:00 Laboratory Data at Discharge: WBC 10.30 thou/uL (4.3-10.9) 09/27/24 05:56 Hgb 12.9 g/dL (12.0-15.0) 09/27/24 05:56 Hct 37.1 % (36.0-45.0) 09/27/24 05:56 Plt Count 284 thou/uL (152-406) 09/27/24 05:56 PT 11.1 SECONDS (10-13.0) 09/24/24 13:15 INR 0.98 09/24/24 13:15 Sodium 141 mEq/L (136-145) 09/27/24 05:56 Potassium 4.4 mEq/L (3.5-5.1) 09/27/24 05:56 BUN 23 mg/dL (7-18) H 09/27/24 05:56 Creatinine 0.56 mg/dL (0.55-1.02) 09/27/24 05:56 Glucose 133 mg/dL (74-106) H 09/27/24 05:56 Phosphorus 2.7 mg/dL (2.5-4.9) 09/27/24 05:56 Magnesium 2.5 mg/dL (1.6-2.4) H 09/27/24 05:56 Total Bilirubin 0.3 mg/dL (0.2-1.0) 09/24/24 13:15 AST < 10 U/L (15-37) L 09/24/24 13:15 ALT < 14 U/L (13-56) 09/24/24 13:15 Alkaline Phosphatase 88 U/L (45-117) 09/24/24 13:15 Triglycerides 65 mg/dL (<150) 09/24/24 13:15 Cholesterol 106 mg/dL (<200) 09/24/24 13:15 HDL Cholesterol 57 mg/dL (40-60) 09/24/24 13:15 Cholesterol/HDL Ratio 1.86 09/24/24 13:15 Home Medications: Aspirin [Aspirin EC 81 MG] 81 mg PO DAILY 03/22/21 Cholecalciferol (Vitamin D3) [Vitamin D3] 2,000 unit PO DAILY 03/22/21 Ezetimibe 10 mg PO DAILY 03/22/21 Ezetimibe/Rosuvastatin Calcium [Rosuvastatin-Ezetimibe 10-10Mg] 1 each PO DAILY 03/22/21 Folic Acid/Vit B Complex and C [Folbee Plus Tablet] 5 mg PO DAILY 03/22/21 Fluticasone/Umeclidin/Vilanter [Trelegy Ellipta 100-62.5-25] 2 puff IH DAILY 07/14/24 Metoprolol Succinate 25 mg PO DAILY 07/14/24 Prasugrel HCl [Effient] 10 mg PO DAILY 07/14/24 Quercetin 1,000 mg PO DAILY 07/14/24 Candesartan Cilexetil 8 mg PO DAILY 09/25/24 predniSONE [Deltasone*] 10 mg PO SEECOM 09/25/24 levoFLOXacin [Levaquin] 750 mg PO DAILY 5 Days #5 tab 09/27/24 predniSONE [Prednisone] 20 mg PO BID 5 Days #10 tab 09/27/24 New Medications: levoFLOXacin [Levaquin] 750 mg PO DAILY 5 Days #5 tab predniSONE [Prednisone] 20 mg PO BID 5 Days #10 tab Physician Discharge Instructions: Physician discharge instructions: Patient presented with worsening shortness of breath, wheeze secondary to acute on chronic COPD exacerbation. CTA chest was negative for PE but did show advanced COPD changes and also noted Multifocal pulmonary nodules, including confluent small nodules in the peripheral right upper lobe, concerning for infectious/inflammatory process. Dr. Dorsey, saw repairer was consulted. Patient received IV steroids in addition to empiric antibiotics and nebulizer treatments and had improvement of her symptoms. IV steroids and IV levaquin were deescalated to oral Prednisone/Levaquin and patient continued to improve. Patient is to complete 5 more days of oral leavquin and prednisone on discharge. Patient was feeling better, breathing more comfortably, afebrile without leukocytosis for > 24 hours, and was deemed stable for discharge. Follow up with Dr. Dorsey in 1 week for further management. She also reports having home oxygen setup at home already from a prior hospitalization. Medications: Prednisone 20mg twice daily for 5 days Levaquin 750 mg daily for 5 days Follow up: PCP 3-[address] Dorsey in 1 week Please call to schedule/ confirm appointments Order for nebulizer machine was sent to: [facility] [address] [place] [address] Followup: Connor Dorsey MD [ACTIVE - CAN ADMIT] - 1 Week Dionicio Velasquez MD [Primary Care Provider] - 1-2 Weeks Time spent managing pt's care (in minutes): 45
[2024-09-27] MEDS: levoFLOXacin 250 MG TAB PO SCH (09:27)
[2024-09-27] MEDS: FAMOTIDINE 20 MG TAB PO SCH (09:28)
[2024-09-27 12:52] VITALS: BP 136/62; TEMP 98.2
[2024-09-27 16:22] VITALS: O2SAT 92
== END 2024-09-27 12:25 | disposition home or self-care (01) | DRG 193 ==
LOC: ER 12:29 → ERHOLD 14:22 → 2ND 17:36 → OBSVTOIN 09-26 10:56
PROVIDERS: ADMIT Internal Medicine; ATTEND Hospitalist
DX: J18.9 Pneumonia, unspecified organism (principal); J96.21 Acute and chronic respiratory failure with hypoxia; J44.1 Chronic obstructive pulmonary disease with (acute) exacerbation; J44.0 Chronic obstructive pulmonary disease with (acute) lower respiratory infection; J43.9 Emphysema, unspecified; E78.00 Pure hypercholesterolemia, unspecified; I10 Essential (primary) hypertension; I25.10 Atherosclerotic heart disease of native coronary artery without angina pectoris; R25.1 Tremor, unspecified; Z71.6 Tobacco abuse counseling; Z95.5 Presence of coronary angioplasty implant and graft; Z11.52 Encounter for screening for COVID-19; Z79.82 Long term (current) use of aspirin; Z79.52 Long term (current) use of systemic steroids; Z79.899 Other long term (current) drug therapy
CPT/HCPCS: 36415; 36600; 71045; 71275; 80048; 80061; 80076; 82805; 82947; 83605; 83735; 83880; 84100; 84484; 85025; 85379; 85610; 87040; 87428; 93005; 94640; 94760; 96374; 96375; 99285; G0378; J1650; J2919; J7030; J7512; J7613; J7614; J7644; Q9967